=== PATIENT | male | born 1960 | race Hispanic/Latino ===

== ENCOUNTER 2016-11-28 10:28 | Emergency (ER) | payer MEDICAID ==
[2016-11-28] MEDS ORDERED: Albuterol-Ipratrop 3 mg / 0.5 (3 ml) UD ONE ×3 (10:41→11:17)
--- NOTE | 2016-11-28 10:53 | C.PDOC ---
History Of Present Illness 56 y/o male presents to ED with complaints of increased shortness of breath. Patient was seen by PMD 1 week ago and given Pulmonary consult referral but was not compliant due to misplacing medicare card as per patient. Patient reports he was a smoker up to 1 year ago and uses inhaler at home. Patient denies fever , chills, chest pain, n/v/d or any other complaints at this time. Time Seen by Provider: 11/28/16 10:37 Chief Complaint (Nursing): Shortness Of Breath History Per: Patient History/Exam Limitations: no limitations Onset/Duration Of Symptoms: Days Current Symptoms Are (Timing): Still Present Current Respiratory Medications: Albuterol Past Medical History Reviewed: Historical Data, Nursing Documentation, Vital Signs Vital Signs: Last Vital Signs Temp 97.3 F L 11/28/16 12:28 Pulse 96 H 11/28/16 12:28 Resp 18 11/28/16 12:28 BP 125/80 11/28/16 12:28 Pulse Ox 94 L 11/28/16 12:28 - Medical History PMH: Asthma, COPD Family History: States: Unknown Family Hx - Social History Hx Alcohol Use: No Hx Substance Use: No - Immunization History Hx Tetanus Toxoid Vaccination: No Hx Influenza Vaccination: Yes Hx Pneumococcal Vaccination: No Review Of Systems Except As Marked, All Systems Reviewed And Found Negative. Constitutional: Negative for: Fever, Chills Cardiovascular: Negative for: Chest Pain Respiratory: Positive for: Shortness of Breath. Negative for: Cough Gastrointestinal: Negative for: Nausea, Vomiting, Diarrhea Skin: Negative for: Rash Physical Exam - Physical Exam Appears: Non-toxic, No Acute Distress Skin: Normal Color, Warm, No Rash Head: Atraumatic, Normacephalic Oral Mucosa: Moist Chest: Symmetrical Cardiovascular: Rhythm Regular Respiratory: Normal Breath Sounds, No Rales, No Rhonchi, Wheezing (At base of lungs bilateral) Gastrointestinal/Abdominal: Soft, No Tenderness, No Guarding, No Rebound Extremity: Normal ROM, Capillary Refill (<2 seconds) Neurological/Psych: Oriented x3, Normal Speech ED Course And Treatment - Laboratory Results Result Diagrams: 11/28/16 11:16 11/28/16 10:47 Lab Interpretation: Normal ECG: Interpreted By Me ECG Rhythm: Sinus Tachycardia ECG Interpretation: No Acute Changes Rate From EC O2 Sat by Pulse Oximetry: 96 (RA) Pulse Ox Interpretation: Normal - Radiology CXR: Interpreted by Me CXR Interpretation: Yes: No Acute Disease - Other Rad chest X-Ray: Interpreted by Me, Viewed By Me, Read By Radiologist Interpretation: HISTORY: SOB. COMPARISON: Chest x-ray performed 06/11/16. TECHNIQUE: Chest PA and lateral. FINDINGS: LUNGS: Mild biapical pleural thickening. No focal consolidation. Scattered probable calcified granulomas. PLEURA: No significant pleural effusion identified. No definite pneumothorax . CARDIOVASCULAR: Heart size appears within normal limits. OSSEOUS STRUCTURES : Degenerative changes of the spine. VISUALIZED UPPER ABDOMEN: Unremarkable. OTHER FINDINGS: None. IMPRESSION: Mild biapical pleural thickening. Scattered probable tiny calcified granulomas. Progress Note: Treated with duonebs and prednisone. On re-ebaluation lungs clear, in no distress. ambulating with steady gait Reassessment Condition: Improved Medical Decision Making Medical Decision Making: Plan: * CXR * Breathing treatment * Steroids Disposition Counseled Patient/Family Regarding: Studies Performed, Diagnosis, Need For Followup - Disposition Referrals: Niecy Coreas MD [Medical Doctor] - Disposition: HOME/ ROUTINE Disposition Time: 13:00 Condition: GOOD Additional Instructions: Follow up with PMD for further evaluation Prescriptions: Methylprednisolone [Medrol Dose Pack (21 tabs)] 4 mg PO DAILY #21 mg Instructions: Dyspnea (ED) Forms: [facility] (Turkish) - POA Present On Arrival: None - Clinical Impression Clinical Impression: Dyspnea - Scribe Statement The provider has reviewed the documentation as recorded by the Daniloibblessing Velazquez All medical record entries made by the Daniloibblessing were at my direction and personally dictated by me. I have reviewed the chart and agree that the record accurately reflects my personal performance of the history, physical exam, medical decision making, and the department course for this patient. I have also personally directed, reviewed, and agree with the discharge instructions and disposition.
[2016-11-28] MEDS: Albuterol-Ipratrop 3 mg / 0.5 (3 ml) UD IH SCH ×3 (11:00→11:30)
[2016-11-28 11:09] LABS: BASO # 0.1 K/uL (0.0-0.2); EOS # 0.3 K/uL (0.0-0.7); EOS % 3.6 % (0.0-4.0); HEMATOCRIT 44.9 % (35.0-51.0); LYMPH # 0.9 K/uL (1.0-4.3); LYMPH % 10.8 % (20.0-40.0); MEAN CELL VOLUME 88.1 fL (80.0-94.0); MEAN PLATELET VOLUME 9.4 fL (7.2-11.7); MONO # 0.5 K/uL (0.0-0.8); MONO % 6.2 % (0.0-10.0); RED CELL DISTRIBUTION WIDTH 14.6 % (11.5-14.5); WHITE BLOOD COUNT 8.1 K/uL (4.8-10.8)
[2016-11-28 11:17] LABS: CHLORIDE 103 mmol/L (98-107); SODIUM 139 mmol/L (132-148)
[2016-11-28 11:18] LABS: POTASSIUM 3.8 mmol/L (3.6-5.2)
[2016-11-28 11:20] LABS: ALB/GLOB RATIO 1.2 (1.0-2.1); ALKALINE PHOSPHATASE 89 U/L (38-126); AST/SGOT 24 U/L (17-59); BILIRUBIN,TOTAL 0.7 mg/dL (0.2-1.3); BLOOD UREA NITROGEN 14 mg/dL (9-20); CARBON DIOXIDE 24 mmol/L (22-30); GFR AFRICAN-AMERICAN > 60; GLUCOSE,RANDOM 98 mg/dL (75-110); TOTAL PROTEIN 7.5 g/dL (6.3-8.3)
[2016-11-28 11:21] LABS: ALT/SGPT 40 U/L (21-72); CALCIUM 8.7 mg/dl (8.6-10.4)
[2016-11-28 11:25] VITALS: RESP 18
[2016-11-28 11:25] LABS: RBC URINE < 1 /hpf (0-3); URINE BILIRUBIN NEGATIVE (NEGATIVE); URINE BLOOD NEGATIVE (NEGATIVE); URINE COLOR Straw (YELLOW); URINE GLUCOSE (UA) NORMAL (Normal); URINE KETONE NEGATIVE (NEGATIVE); URINE LEUKOCYTE ESTERASE NEG Leu/uL (Negative); URINE PROTEIN NEGATIVE (NEGATIVE); URINE UROBILINOGEN NORMAL mg/dL (0.2-1.0); WBC URINE < 1 /hpf (0-5)
--- NOTE | 2016-11-28 12:03 | RAD ---
HISTORY: SOB COMPARISON: Chest x-ray performed 06/11/16 TECHNIQUE: Chest PA and lateral FINDINGS: LUNGS: Mild biapical pleural thickening. No focal consolidation. Scattered probable calcified granulomas. PLEURA: No significant pleural effusion identified. No definite pneumothorax . CARDIOVASCULAR: Heart size appears within normal limits. OSSEOUS STRUCTURES: Degenerative changes of the spine. VISUALIZED UPPER ABDOMEN: Unremarkable. OTHER FINDINGS: None. IMPRESSION: Mild biapical pleural thickening. Scattered probable tiny calcified granulomas.
[2016-11-28 12:29] VITALS: BP 125/80; PULSE 96; TEMP 97.3
[2016-11-28 17:05] VITALS: O2SAT 96
--- NOTE | 2016-12-01 18:13 | CARD ---
APPROVED REPORT EKG Measurement Heart [id number] <Conclusion> Sinus tachycardia Otherwise normal ECG
== END 2016-11-28 12:30 | disposition home or self-care (01) ==
LOC: C.ER 10:28
DX: R06.00 Dyspnea, unspecified (principal)

== ENCOUNTER 2016-12-09 04:53 | Inpatient (IN) | payer MEDICAID ==
[2016-12-09] MEDS ORDERED: Albuterol-Ipratrop 3 mg / 0.5 (3 ml) UD INH STA ×3 (05:30→05:31)
[2016-12-09 05:33] LABS: BASO # 0.1 K/uL (0.0-0.2); BASO % 0.4 % (0.0-2.0); EOS # 0.4 K/uL (0.0-0.7); EOS % 3.1 % (0.0-4.0); HEMATOCRIT 46.7 % (35.0-51.0); LYMPH # 1.5 K/uL (1.0-4.3); LYMPH % 11.3 % (20.0-40.0); MEAN CELL VOLUME 88.7 fL (80.0-94.0); MEAN CORPUSCULAR HEMOGLOBIN 29.5 pg (27.0-31.0); MEAN CORPUSCULAR HGB CONC 33.2 g/dL (33.0-37.0); MEAN PLATELET VOLUME 9.6 fL (7.2-11.7); MONO % 7.2 % (0.0-10.0); RED CELL DISTRIBUTION WIDTH 14.1 % (11.5-14.5); WHITE BLOOD COUNT 13.5 K/uL (4.8-10.8)
[2016-12-09] MEDS ORDERED: Magnesium Sulfate 1 gm in D5W 1 GM/100 ML BAG IVPB ONE ×2 (05:33→06:10)
[2016-12-09] MEDS: Magnesium Sulfate 1 gm in D5W 1 GM/100 ML BAG IVPB SCH ×2 (05:35→06:13)
[2016-12-09 05:36] LABS: ABG ALLEN TEST POS; ABG MECHANICAL RATE 12; ARTERIAL BLOOD GAS MODE BiPAP; ARTERIAL BLOOD HGB O2 SAT 96.8 % (95.0-98.0); CARBOXYHEMOGLOBIN 1.8 % (0.5-1.5); DRAW SITE RRADIAL; METHEMOGLOBIN 1.3 % (0.0-3.0)
[2016-12-09] MEDS ORDERED: Albuterol-Ipratrop 3 mg / 0.5 (3 ml) UD ONE (05:41)
[2016-12-09 05:44] LABS: CHLORIDE 100 mmol/L (98-107); POTASSIUM 3.8 mmol/L (3.6-5.2); SODIUM 142 mmol/L (132-148)
[2016-12-09 05:46] LABS: BILIRUBIN,TOTAL 0.7 mg/dL (0.2-1.3); GFR AFRICAN-AMERICAN > 60
[2016-12-09 05:47] LABS: ALB/GLOB RATIO 1.1 (1.0-2.1); ALKALINE PHOSPHATASE 105 U/L (38-126); ALT/SGPT 52 U/L (21-72); AST/SGOT 35 U/L (17-59); BLOOD UREA NITROGEN 21 mg/dL (9-20); CARBON DIOXIDE 23 mmol/L (22-30); GLUCOSE,RANDOM 128 mg/dL (75-110); TOTAL PROTEIN 8.3 g/dL (6.3-8.3)
--- NOTE | 2016-12-09 06:34 | C.PDOC ---
History Of Present Illness 56 year old male with a history of COPD was brought to the ED by ALS with complaints of sudden onset of shortness of breath upon waking up. Patient was given 20 of [place] in the field and placed on C-PAP. He also notes chronic dry cough and stopped smoking one year ago with a 45 year pack history. Patient denies pain while in the ED, fever, chest pain, or other complaints. Time Seen by Provider: 12/09/16 05:08 Chief Complaint (Nursing): Respiratory Distress History Per: Patient, Other (ALS) History/Exam Limitations: no limitations Onset/Duration Of Symptoms: Hrs, Sudden Onset Current Symptoms Are (Timing): Still Present Recent travel outside of the [place]: No Past Medical History Reviewed: Historical Data, Nursing Documentation, Vital Signs Vital Signs: Last Vital Signs Temp 97.5 F L 12/09/16 05:00 Pulse 107 H 12/09/16 05:14 Resp 24 12/09/16 05:38 BP 132/89 12/09/16 05:00 Pulse Ox 100 12/09/16 06:45 - Medical History PMH: Asthma, COPD Family History: States: Unknown Family Hx - Social History Hx Alcohol Use: No Hx Substance Use: No - Immunization History Hx Tetanus Toxoid Vaccination: No Hx Influenza Vaccination: Yes Hx Pneumococcal Vaccination: No Review Of Systems Constitutional: Negative for: Fever, Chills Cardiovascular: Negative for: Chest Pain, Palpitations Respiratory: Positive for: Shortness of Breath Physical Exam - Physical Exam Appears: Non-toxic, In Acute Distress (Mild to moderate distress ) Skin: Warm, Dry Head: Atraumatic Eye(s): bilateral: Normal Inspection, EOMI Oral Mucosa: Moist Neck: Supple Chest: Other (Chest is barrel shaped ) Cardiovascular: Other (Patient is tachycardic and regular ) Respiratory: No Accessory Muscle Use, No Rales, No Rhonchi, Wheezing (bilateral expiratory wheeze with fair entry ) Gastrointestinal/Abdominal: Soft, No Tenderness, No Distention, No Guarding, No Rebound ED Course And Treatment - Laboratory Results Result Diagrams: 12/09/16 05:31 12/09/16 05:31 ECG: Interpreted By Me, Viewed By Me ECG Rhythm: Sinus Tachycardia Interpretation Of ECG: Normal axis and normal interval. Rate From EC O2 Sat by Pulse Oximetry: 100 (room air ) Progress Note: CXR, EKG, and labs were ordered. Patient was given Duoneb, Solu- medrol, and BIPAP treatment. Upon re-evaluation, patient states he is feeling better. Patient has been taken off of BIPAP and is no acute distress. Critical Care Time - Critical Care Note Total Time (in mins): 40 Documented critical care: time excludes all time spent performing seperately billable procedures. Disposition - Disposition Disposition: HOSPITALIZED Disposition Time: 06:20 Condition: STABLE Forms: [employer] (Lithuanian) - Clinical Impression Clinical Impression: Chronic obstructive lung disease - Scribe Statement The provider has reviewed the documentation as recorded by the Scribe Shannan Abrams All medical record entries made by the Daniloibe were at my direction and personally dictated by me. I have reviewed the chart and agree that the record accurately reflects my personal performance of the history, physical exam, medical decision making, and the department course for this patient. I have also personally directed, reviewed, and agree with the discharge instructions and disposition.
--- NOTE | 2016-12-09 07:31 | RAD ---
PROCEDURE: CHEST RADIOGRAPH, 1 VIEW HISTORY: SOB COMPARISON: Chest radiographs 11/28/2016 FINDINGS: LUNGS: Clear. PLEURA: No pneumothorax or pleural fluid seen. CARDIOVASCULAR: Normal. OSSEOUS STRUCTURES: No significant abnormalities. VISUALIZED UPPER ABDOMEN: Normal. OTHER FINDINGS: None. IMPRESSION: No acute cardiopulmonary disease or significant interval change 11/28/2016.
[2016-12-09] MEDS: Albuterol-Ipratrop 3 mg / 0.5 (3 ml) UD INH SCH ×2 (13:42→20:35)
[2016-12-09] MEDS: Enoxaparin 40 mg Syringe SC SCH (13:51)
[2016-12-09] MEDS: Azithromycin 500mg/250ML NS 500 MG/250 ML BAG IVPB SCH (14:00)
[2016-12-09] MEDS: cefTRIAXone IV 1 gm in Dextros 50 ML IVPB SCH (14:00)
[2016-12-09] MEDS: MethylPREDNISolone 40 mg Vial IVP SCH ×2 (14:40→21:52)
--- NOTE | 2016-12-09 15:02 | CP.PCM.PN ---
Subjective - Date & Time of Evaluation Date of Evaluation: 12/09/16 Time of Evaluation: 15:02 Objective - Vital Signs/Intake and Output Vital Signs (last 24 hours): Temp Pulse Resp BP Pulse Ox 98.1 F 84 20 130/72 98 12/09/16 08:30 12/09/16 09:00 12/09/16 08:30 12/09/16 08:30 12/09/16 08:30 - Medications Medications: Current Medications Albuterol/Ipratropium (Duoneb 3 Mg/0.5 Mg (3 Ml) Ud) 3 ml INH RQ6 [facility] Last Admin: 12/09/16 13:42 Dose: 3 ml Enoxaparin Sodium (Lovenox) 40 mg SC DAILY [facility] Last Admin: 12/09/16 13:51 Dose: 40 mg Azithromycin (Zithromax 500mg In Ns Addvantage) 500 mg in 250 mls @ 167 mls/hr IVPB Q24H [facility] Last Admin: 12/09/16 14:00 Dose: 167 mls/hr Ceftriaxone Sodium (Rocephin Iv 1 Gm Duplex) 50 mls @ 100 mls/hr IVPB Q24H [facility] Last Admin: 12/09/16 14:00 Dose: 100 mls/hr Methylprednisolone (Solu-Medrol) 40 mg IVP Q8 [facility] Last Admin: 12/09/16 14:40 Dose: 40 mg Montelukast Sodium (Singulair) 10 mg PO HS [facility] Pantoprazole Sodium (Protonix Ec Tab) 40 mg PO DAILY [facility] Fluticasone/Salmeterol (Advair Diskus 250/50) 1 puff INH QD7 [facility]
--- NOTE | 2016-12-09 15:03 | CP.PCM.CON ---
Past Patient History - Past Social History Smoking Status: Current Some Days Smoker - PULMONARY Hx Asthma: Yes Hx Chronic Obstructive Pulmonary Disease (COPD): Yes - MUSCULOSKELETAL/RHEUMATOLOGICAL Hx Falls: No - PSYCHIATRIC Hx Substance Use: No - SURGICAL HISTORY Hx Surgeries: Yes Other/Comment: nose surgery - ANESTHESIA Hx Anesthesia: Yes Hx Anesthesia Reactions: No Meds Allergies/Adverse Reactions: Allergies Allergy/AdvReac Type Severity Reaction Status Date / Time HAYFEVER Allergy Uncoded 12/09/16 05:03 - Medications Medications: Current Medications Albuterol/Ipratropium (Duoneb 3 Mg/0.5 Mg (3 Ml) Ud) 3 ml INH RQ6 [facility] Last Admin: 12/09/16 13:42 Dose: 3 ml Enoxaparin Sodium (Lovenox) 40 mg SC DAILY [facility] Last Admin: 12/09/16 13:51 Dose: 40 mg Azithromycin (Zithromax 500mg In Ns Addvantage) 500 mg in 250 mls @ 167 mls/hr IVPB Q24H [facility] Last Admin: 12/09/16 14:00 Dose: 167 mls/hr Ceftriaxone Sodium (Rocephin Iv 1 Gm Duplex) 50 mls @ 100 mls/hr IVPB Q24H [facility] Last Admin: 12/09/16 14:00 Dose: 100 mls/hr Methylprednisolone (Solu-Medrol) 40 mg IVP Q8 [facility] Last Admin: 12/09/16 14:40 Dose: 40 mg Montelukast Sodium (Singulair) 10 mg PO HS [facility] Pantoprazole Sodium (Protonix Ec Tab) 40 mg PO DAILY [facility] Fluticasone/Salmeterol (Advair Diskus 250/50) 1 puff INH QD7 [facility] Results - Vital Signs Recent Vital Signs: Last Vital Signs Temp 98.1 F 12/09/16 08:30 Pulse 84 12/09/16 09:00 Resp 20 12/09/16 08:30 BP 130/72 12/09/16 08:30 Pulse Ox 98 12/09/16 08:30 - Labs Result Diagrams: 12/09/16 05:31 12/09/16 05:31
--- NOTE | 2016-12-09 15:35 | CP.PCM.HP ---
Past Patient History - Past Social History Smoking Status: Current Some Days Smoker - PULMONARY Hx Asthma: Yes Hx Chronic Obstructive Pulmonary Disease (COPD): Yes - MUSCULOSKELETAL/RHEUMATOLOGICAL Hx Falls: No - PSYCHIATRIC Hx Substance Use: No - SURGICAL HISTORY Hx Surgeries: Yes Other/Comment: nose surgery - ANESTHESIA Hx Anesthesia: Yes Hx Anesthesia Reactions: No Meds Allergies/Adverse Reactions: Allergies Allergy/AdvReac Type Severity Reaction Status Date / Time HAYFEVER Allergy Uncoded 12/09/16 05:03 Results - Vital Signs Recent Vital Signs: Last Vital Signs Temp 98.1 F 12/09/16 08:30 Pulse 84 12/09/16 09:00 Resp 20 12/09/16 08:30 BP 130/72 12/09/16 08:30 Pulse Ox 98 12/09/16 08:30 - Labs Result Diagrams: 12/09/16 05:31 12/09/16 05:31
--- NOTE | 2016-12-09 16:26 | CP.PCM.PN ---
Subjective - Date & Time of Evaluation Date of Evaluation: 12/09/16 Time of Evaluation: 02:20 - Subjective Subjective: clinically same Objective - Vital Signs/Intake and Output Vital Signs (last 24 hours): Temp Pulse Resp BP Pulse Ox 98 F 80 20 111/70 97 12/09/16 16:15 12/09/16 16:15 12/09/16 16:15 12/09/16 16:15 12/09/16 16:15 - Medications Medications: Current Medications Albuterol/Ipratropium (Duoneb 3 Mg/0.5 Mg (3 Ml) Ud) 3 ml INH RQ6 [facility] Last Admin: 12/09/16 13:42 Dose: 3 ml Enoxaparin Sodium (Lovenox) 40 mg SC DAILY [facility] Last Admin: 12/09/16 13:51 Dose: 40 mg Azithromycin (Zithromax 500mg In Ns Addvantage) 500 mg in 250 mls @ 167 mls/hr IVPB Q24H [facility] Last Admin: 12/09/16 14:00 Dose: 167 mls/hr Ceftriaxone Sodium (Rocephin Iv 1 Gm Duplex) 50 mls @ 100 mls/hr IVPB Q24H [facility] Last Admin: 12/09/16 14:00 Dose: 100 mls/hr Methylprednisolone (Solu-Medrol) 40 mg IVP Q8 [facility] Last Admin: 12/09/16 14:40 Dose: 40 mg Montelukast Sodium (Singulair) 10 mg PO HS [facility] Pantoprazole Sodium (Protonix Ec Tab) 40 mg PO DAILY [facility] Fluticasone/Salmeterol (Advair Diskus 250/50) 1 puff INH QD7 [facility] - Constitutional Appears: Well - Head Exam Head Exam: ATRAUMATIC, NORMAL INSPECTION, NORMOCEPHALIC - Eye Exam Eye Exam: EOMI, Normal appearance, PERRL - ENT Exam ENT Exam: Mucous Membranes Moist, Normal Exam - Neck Exam Neck Exam: Full ROM, Normal Inspection. absent: Lymphadenopathy - Respiratory Exam Respiratory Exam: Decreased Breath Sounds - Cardiovascular Exam Cardiovascular Exam: REGULAR RHYTHM, +S1, +S2. absent: Murmur - GI/Abdominal Exam GI & Abdominal Exam: Diminished Bowel Sounds - Rectal Exam Rectal Exam: Deferred Assessment and Plan (1) Chronic obstructive lung disease Status: Acute (2) Asthma exacerbation Status: Acute (3) Chest wall pain Status: Acute (4) Dyspnea Status: Acute (5) Laryngitis Status: Acute
--- NOTE | 2016-12-09 20:15 | CP.PCM.CON ---
History of Present Illness - History of Present Illness History of Present Illness: 56 Male Ex smoker admitted with dyspnea C/O Atypical chest pain Review of Systems - Constitutional Constitutional: absent: Chills - EENT Eyes: absent: As Per HPI, Blind Spots, Blurred Vision, Change in Vision, Decreased Night Vision, Diplopia, Discharge, Dry Eye, Exophthalmos, Floaters, Irritation, Itchy Eyes, Loss of Peripheral Vision, Pain, Photophobia, Requires Corrective Lenses, Sees Flashes, Spots in Vision, Tunnel Vision, Other Visual Disturbances, Loss of Vision, Other Nose/Mouth/Throat: absent: As Per HPI, Epistaxis, Nasal Congestion, Nasal Discharge, Nasal Obstruction, Nasal Trauma, Nose Pain, Post Nasal Drip, Sinus Pain, Sinus Pressure, Bleeding Gums, Change in Voice, Dental Pain, Dry Mouth, Dysphagia, Halitosis, Hoarsness, Lip Swelling, Mouth Lesions, Mouth Pain, Odynophagia, Sore Throat, Throat Swelling, Tongue Swelling, Facial Pain, Neck Pain, Neck Mass, Other - Cardiovascular Cardiovascular: Chest Pain, Dyspnea on Exertion - Respiratory Respiratory: Dyspnea on Exertion. absent: Cough - Gastrointestinal Gastrointestinal: absent: Abdominal Pain - Musculoskeletal Musculoskeletal: Myalgias - Neurological Neurological: absent: As Per HPI, Abnormal Gait, Abnormal Hearing, Abnormal Movements, Abnormal Speech, Behavioral Changes, Burning Sensations, Confusion, Convulsions, Disequilibrium, Dizziness, Numbness, Focal Weakness, Frequent Falls , Headaches, Lack of Coordination, Loss of Vision, Memory Loss, Paresthesias, Radicular Pain, Restless Legs, Sensory Deficit, Syncope, Tingling, Tremor, Vertigo, Weakness, Other Visual Disturbances, Other - Psychiatric Psychiatric: absent: As Per HPI, Abnormal Sleep Pattern, Anhedonia, Anxiety, Auditory Hallucinations, Behavioral Changes, Change in Appetite, Change in Libido, Confusion, Depression, Difficulty Concentrating, Hallucinations, Homicidal Ideation, Hopelessness, Irritability, Memory Loss, Mood Swings, Panic Attacks, Paranoia, Suicidal Ideation, Visual Hallucinations, Tactile Hallucinations, Other Past Patient History - Past Social History Smoking Status: Current Some Days Smoker - PULMONARY Hx Asthma: Yes Hx Chronic Obstructive Pulmonary Disease (COPD): Yes - MUSCULOSKELETAL/RHEUMATOLOGICAL Hx Falls: No - PSYCHIATRIC Hx Substance Use: No - SURGICAL HISTORY Hx Surgeries: Yes Other/Comment: nose surgery - ANESTHESIA Hx Anesthesia: Yes Hx Anesthesia Reactions: No Meds Allergies/Adverse Reactions: Allergies Allergy/AdvReac Type Severity Reaction Status Date / Time HAYFEVER Allergy Uncoded 12/09/16 05:03 - Medications Medications: Current Medications Albuterol/Ipratropium (Duoneb 3 Mg/0.5 Mg (3 Ml) Ud) 3 ml INH RQ6 [facility] Last Admin: 12/09/16 13:42 Dose: 3 ml Enoxaparin Sodium (Lovenox) 40 mg SC DAILY [facility] Last Admin: 12/09/16 13:51 Dose: 40 mg Azithromycin (Zithromax 500mg In Ns Addvantage) 500 mg in 250 mls @ 167 mls/hr IVPB Q24H [facility] Last Admin: 12/09/16 14:00 Dose: 167 mls/hr Ceftriaxone Sodium (Rocephin Iv 1 Gm Duplex) 50 mls @ 100 mls/hr IVPB Q24H [facility] Last Admin: 12/09/16 14:00 Dose: 100 mls/hr Methylprednisolone (Solu-Medrol) 40 mg IVP Q8 [facility] Last Admin: 12/09/16 14:40 Dose: 40 mg Montelukast Sodium (Singulair) 10 mg PO HS [facility] Pantoprazole Sodium (Protonix Ec Tab) 40 mg PO DAILY [facility] Fluticasone/Salmeterol (Advair Diskus 250/50) 1 puff INH QD7 [facility] Physical Exam - Head Exam Head Exam: ATRAUMATIC, NORMAL INSPECTION - Eye Exam Eye Exam: EOMI, PERRL Pupil Exam: NORMAL ACCOMODATION - ENT Exam ENT Exam: Mucous Membranes Moist - Neck Exam Neck exam: Positive for: Normal Inspection - Respiratory Exam Additional comments: Decreased basal breath sounds - Cardiovascular Exam Cardiovascular Exam: REGULAR RHYTHM, +S1, +S2 - GI/Abdominal Exam GI & Abdominal Exam: Normal Bowel Sounds, Soft - Neurological Exam Neurological exam: Alert, CN II-XII Intact, Reflexes Normal - Psychiatric Exam Psychiatric exam: Normal Mood - Skin Skin Exam: Warm Results - Vital Signs Recent Vital Signs: Last Vital Signs Temp 98 F 12/09/16 16:15 Pulse 80 12/09/16 16:15 Resp 20 12/09/16 16:15 BP 111/70 12/09/16 16:15 Pulse Ox 97 12/09/16 16:15 - Labs Result Diagrams: 12/09/16 05:31 12/09/16 05:31 Assessment & Plan - Assessment and Plan (Free Text) Assessment: 1. Dyspnea Likely respiratory. Check ProBNP 2. atypical chest pain. Trops normal. Check ECHO
[2016-12-10] MEDS: Albuterol-Ipratrop 3 mg / 0.5 (3 ml) UD INH SCH ×4 (01:45→20:26)
[2016-12-10] MEDS: MethylPREDNISolone 40 mg Vial IVP SCH ×3 (05:08→21:26)
[2016-12-10] MEDS: Enoxaparin 40 mg Syringe SC SCH (09:37)
[2016-12-10] MEDS: Pantoprazole 40 mg EC Tab PO SCH (09:37)
[2016-12-10] MEDS: Fluticasone-Salmeterol 250-50mcg Diskus INH SCH ×2 (09:55→20:26)
[2016-12-10] MEDS: Azithromycin 500mg/250ML NS 500 MG/250 ML BAG IVPB SCH (12:14)
--- NOTE | 2016-12-10 14:22 | CP.PCM.PN ---
Subjective - Date & Time of Evaluation Date of Evaluation: 12/10/16 Time of Evaluation: 14:22 Objective - Vital Signs/Intake and Output Vital Signs (last 24 hours): Temp Pulse Resp BP Pulse Ox 97.4 F L 69 18 118/71 95 12/10/16 07:10 12/10/16 07:10 12/10/16 07:10 12/10/16 07:10 12/10/16 07:10 Intake and Output: 12/10/16 12/10/16 06:59 18:59 Intake Total 500 Balance 500 - Medications Medications: Current Medications Albuterol/Ipratropium (Duoneb 3 Mg/0.5 Mg (3 Ml) Ud) 3 ml INH RQ6 [facility] Last Admin: 12/10/16 13:17 Dose: 3 ml Enoxaparin Sodium (Lovenox) 40 mg SC DAILY [facility] Last Admin: 12/10/16 09:37 Dose: 40 mg Azithromycin (Zithromax 500mg In Ns Addvantage) 500 mg in 250 mls @ 167 mls/hr IVPB Q24H [facility] Last Admin: 12/10/16 12:14 Dose: 167 mls/hr Ceftriaxone Sodium (Rocephin Iv 1 Gm Duplex) 50 mls @ 100 mls/hr IVPB Q24H [facility] Last Admin: 12/09/16 14:00 Dose: 100 mls/hr Methylprednisolone (Solu-Medrol) 40 mg IVP Q8 [facility] Last Admin: 12/10/16 05:08 Dose: 40 mg Montelukast Sodium (Singulair) 10 mg PO HS [facility] Last Admin: 12/09/16 21:55 Dose: 10 mg Nicotine (Nicoderm Cq) 1 patch TD DAILY [facility] Last Admin: 12/10/16 11:00 Dose: 1 patch Pantoprazole Sodium (Protonix Ec Tab) 40 mg PO DAILY [facility] Last Admin: 12/10/16 09:37 Dose: 40 mg Fluticasone/Salmeterol (Advair Diskus 250/50) 1 puff INH QD7 [facility] Last Admin: 12/10/16 09:55 Dose: 1 puff
--- NOTE | 2016-12-10 14:43 | CP.PCM.PN ---
Subjective - Date & Time of Evaluation Date of Evaluation: 12/10/16 Time of Evaluation: 14:40 - Subjective Subjective: Service for Dr. Ragland Patient seen/examined at bedside. No acute distress. No events overnight. Patient breathing better, will repeat abg. No fevers, chills, vomiting, diarrhea. Cultures negative. Objective - Vital Signs/Intake and Output Vital Signs (last 24 hours): Temp Pulse Resp BP Pulse Ox 97.4 F L 69 18 118/71 95 12/10/16 07:10 12/10/16 07:10 12/10/16 07:10 12/10/16 07:10 12/10/16 07:10 Intake and Output: 12/10/16 12/10/16 06:59 18:59 Intake Total 500 Balance 500 - Medications Medications: Current Medications Albuterol/Ipratropium (Duoneb 3 Mg/0.5 Mg (3 Ml) Ud) 3 ml INH RQ6 [facility] Last Admin: 12/10/16 13:17 Dose: 3 ml Enoxaparin Sodium (Lovenox) 40 mg SC DAILY [facility] Last Admin: 12/10/16 09:37 Dose: 40 mg Azithromycin (Zithromax 500mg In Ns Addvantage) 500 mg in 250 mls @ 167 mls/hr IVPB Q24H [facility] Last Admin: 12/10/16 12:14 Dose: 167 mls/hr Ceftriaxone Sodium (Rocephin Iv 1 Gm Duplex) 50 mls @ 100 mls/hr IVPB Q24H [facility] Last Admin: 12/09/16 14:00 Dose: 100 mls/hr Methylprednisolone (Solu-Medrol) 40 mg IVP Q8 [facility] Last Admin: 12/10/16 05:08 Dose: 40 mg Montelukast Sodium (Singulair) 10 mg PO HS [facility] Last Admin: 12/09/16 21:55 Dose: 10 mg Nicotine (Nicoderm Cq) 1 patch TD DAILY [facility] Last Admin: 12/10/16 11:00 Dose: 1 patch Pantoprazole Sodium (Protonix Ec Tab) 40 mg PO DAILY [facility] Last Admin: 12/10/16 09:37 Dose: 40 mg Fluticasone/Salmeterol (Advair Diskus 250/50) 1 puff INH QD7 [facility] Last Admin: 12/10/16 09:55 Dose: 1 puff - Constitutional Appears: Non-toxic, No Acute Distress - Head Exam Head Exam: ATRAUMATIC, NORMAL INSPECTION, NORMOCEPHALIC - Eye Exam Eye Exam: EOMI - ENT Exam ENT Exam: Mucous Membranes Moist - Neck Exam Neck Exam: Full ROM, Normal Inspection - Respiratory Exam Respiratory Exam: Wheezes. absent: Clear to Ausculation Bilateral, Respiratory Distress - Cardiovascular Exam Cardiovascular Exam: REGULAR RHYTHM, +S1, +S2 - GI/Abdominal Exam GI & Abdominal Exam: Soft, Normal Bowel Sounds. absent: Tenderness - Extremities Exam Extremities Exam: Full ROM, Normal Inspection - Neurological Exam Neurological Exam: Alert, Awake, Oriented x3 - Psychiatric Exam Psychiatric exam: Normal Affect, Normal Mood - Skin Skin Exam: Dry, Intact, Normal Color, Warm Assessment and Plan - Assessment and Plan (Free Text) Assessment: This is a 56 yo male with past medical hx of COPD presenting with shortness of breath/COPD exacerbation 1. COPD exacerbation -duonebs q 6 hrs -azithromycin 500 mg daily -ceftriaxone 15 mg daily -solumedrol 40 iv q 8 -singulair 10 daily -will repeat abg 2. GI/DVT ppx -lovenox 40 daily -protonix daily dw Dr. Ragland
[2016-12-10 14:45] LABS: BASO % 0.1 % (0.0-2.0); HEMATOCRIT 41.6 % (35.0-51.0); LYMPH # 0.4 K/uL (1.0-4.3); LYMPH % 2.3 % (20.0-40.0); MEAN CELL VOLUME 87.9 fL (80.0-94.0); MEAN CORPUSCULAR HEMOGLOBIN 29.2 pg (27.0-31.0); MEAN CORPUSCULAR HGB CONC 33.3 g/dL (33.0-37.0); MEAN PLATELET VOLUME 9.6 fL (7.2-11.7); MONO % 5.3 % (0.0-10.0); PLATELET COUNT 202 K/uL (130-400); RED CELL DISTRIBUTION WIDTH 14.4 % (11.5-14.5); WHITE BLOOD COUNT 19.6 K/uL (4.8-10.8)
[2016-12-10 14:56] LABS: CHLORIDE 101 mmol/L (98-107); POTASSIUM 4.6 mmol/L (3.6-5.2); SODIUM 140 mmol/L (132-148)
[2016-12-10 14:58] LABS: ALB/GLOB RATIO 1.2 (1.0-2.1); ALKALINE PHOSPHATASE 84 U/L (38-126); AST/SGOT 33 U/L (17-59); BILIRUBIN,TOTAL 0.4 mg/dL (0.2-1.3); CARBON DIOXIDE 24 mmol/L (22-30); GFR AFRICAN-AMERICAN > 60; TOTAL PROTEIN 7.5 g/dL (6.3-8.3)
[2016-12-10 14:59] LABS: ALT/SGPT 47 U/L (21-72); BLOOD UREA NITROGEN 24 mg/dL (9-20); CALCIUM 9.2 mg/dl (8.6-10.4); GLUCOSE,RANDOM 138 mg/dL (75-110); MAGNESIUM 2.3 mg/dL (1.6-2.3)
[2016-12-10 15:26] LABS: NEUTROPHIL 93 % (50-75); TOTAL CELLS COUNTED 100
[2016-12-10 16:00] VITALS: RESP 20
[2016-12-10 16:24] LABS: ABG ALLEN TEST POS; ARTERIAL BLOOD HGB O2 SAT 93.8 % (95.0-98.0); DRAW SITE RRA; HHB 2.3 % (0.0-5.0); METHEMOGLOBIN 1.9 % (0.0-3.0)
[2016-12-10] MEDS: cefTRIAXone IV 1 gm in Dextros 50 ML IVPB SCH (17:35)
--- NOTE | 2016-12-10 19:02 | CP.PCM.PN ---
Subjective - Date & Time of Evaluation Date of Evaluation: 12/10/16 Time of Evaluation: 14:20 - Subjective Subjective: clinically same Objective - Vital Signs/Intake and Output Vital Signs (last 24 hours): Temp Pulse Resp BP Pulse Ox 97.4 F L 82 20 115/67 96 12/10/16 15:30 12/10/16 15:30 12/10/16 15:30 12/10/16 15:30 12/10/16 15:30 Intake and Output: 12/10/16 12/11/16 18:59 06:59 Intake Total 700 Balance 700 - Medications Medications: Current Medications Albuterol/Ipratropium (Duoneb 3 Mg/0.5 Mg (3 Ml) Ud) 3 ml INH RQ6 [facility] Last Admin: 12/10/16 13:17 Dose: 3 ml Enoxaparin Sodium (Lovenox) 40 mg SC DAILY [facility] Last Admin: 12/10/16 09:37 Dose: 40 mg Azithromycin (Zithromax 500mg In Ns Addvantage) 500 mg in 250 mls @ 167 mls/hr IVPB Q24H [facility] Last Admin: 12/10/16 12:14 Dose: 167 mls/hr Ceftriaxone Sodium (Rocephin Iv 1 Gm Duplex) 50 mls @ 100 mls/hr IVPB Q24H [facility] Last Admin: 12/10/16 17:35 Dose: 100 mls/hr Methylprednisolone (Solu-Medrol) 40 mg IVP Q8 [facility] Last Admin: 12/10/16 14:53 Dose: 40 mg Montelukast Sodium (Singulair) 10 mg PO HS [facility] Last Admin: 12/09/16 21:55 Dose: 10 mg Nicotine (Nicoderm Cq) 1 patch TD DAILY [facility] Last Admin: 12/10/16 11:00 Dose: 1 patch Pantoprazole Sodium (Protonix Ec Tab) 40 mg PO DAILY [facility] Last Admin: 12/10/16 09:37 Dose: 40 mg Fluticasone/Salmeterol (Advair Diskus 250/50) 1 puff INH QD7 [facility] Last Admin: 12/10/16 09:55 Dose: 1 puff - Labs Labs: 12/10/16 14:40 12/10/16 14:40 - Constitutional Appears: Well - Head Exam Head Exam: ATRAUMATIC, NORMAL INSPECTION, NORMOCEPHALIC - Eye Exam Eye Exam: EOMI, Normal appearance, PERRL Pupil Exam: NORMAL ACCOMODATION, PERRL - ENT Exam ENT Exam: Mucous Membranes Moist, Normal Exam - Neck Exam Neck Exam: Full ROM, Normal Inspection. absent: Lymphadenopathy - Respiratory Exam Respiratory Exam: Decreased Breath Sounds - Cardiovascular Exam Cardiovascular Exam: REGULAR RHYTHM, +S1, +S2 - GI/Abdominal Exam GI & Abdominal Exam: Soft, Diminished Bowel Sounds - Rectal Exam Rectal Exam: Deferred Assessment and Plan (1) Chronic obstructive lung disease Status: Acute (2) Asthma exacerbation Status: Acute (3) Chest wall pain Status: Acute (4) Dyspnea Status: Acute (5) Laryngitis Status: Acute
--- NOTE | 2016-12-10 22:55 | CP.PCM.PN ---
Subjective - Date & Time of Evaluation Date of Evaluation: 12/10/16 Time of Evaluation: 10:50 - Subjective Subjective: Patient seen and evaluated No chest pain Breathing improved Review of Systems - Constitutional Constitutional: absent: Chills - EENT Eyes: absent: As Per HPI, Blind Spots, Blurred Vision, Change in Vision, Decreased Night Vision, Diplopia, Discharge, Dry Eye, Exophthalmos, Floaters, Irritation, Itchy Eyes, Loss of Peripheral Vision, Pain, Photophobia, Requires Corrective Lenses, Sees Flashes, Spots in Vision, Tunnel Vision, Other Visual Disturbances, Loss of Vision, Other Nose/Mouth/Throat: absent: As Per HPI, Epistaxis, Nasal Congestion, Nasal Discharge, Nasal Obstruction, Nasal Trauma, Nose Pain, Post Nasal Drip, Sinus Pain, Sinus Pressure, Bleeding Gums, Change in Voice, Dental Pain, Dry Mouth, Dysphagia, Halitosis, Hoarsness, Lip Swelling, Mouth Lesions, Mouth Pain, Odynophagia, Sore Throat, Throat Swelling, Tongue Swelling, Facial Pain, Neck Pain, Neck Mass, Other - Cardiovascular Cardiovascular: Chest Pain, Dyspnea on Exertion - Respiratory Respiratory: Dyspnea on Exertion. absent: Cough - Gastrointestinal Gastrointestinal: absent: Abdominal Pain - Musculoskeletal Musculoskeletal: Myalgias - Neurological Neurological: absent: As Per HPI, Abnormal Gait, Abnormal Hearing, Abnormal Movements, Abnormal Speech, Behavioral Changes, Burning Sensations, Confusion, Convulsions, Disequilibrium, Dizziness, Numbness, Focal Weakness, Frequent Falls , Headaches, Lack of Coordination, Loss of Vision, Memory Loss, Paresthesias, Radicular Pain, Restless Legs, Sensory Deficit, Syncope, Tingling, Tremor, Vertigo, Weakness, Other Visual Disturbances, Other - Psychiatric Psychiatric: absent: As Per HPI, Abnormal Sleep Pattern, Anhedonia, Anxiety, Auditory Hallucinations, Behavioral Changes, Change in Appetite, Change in Libido, Confusion, Depression, Difficulty Concentrating, Hallucinations, Homicidal Ideation, Hopelessness, Irritability, Memory Loss, Mood Swings, Panic Attacks, Paranoia, Suicidal Ideation, Visual Hallucinations, Tactile Hallucinations, Other Past Patient History - Past Social History Smoking Status: Current Some Days Smoker - PULMONARY Hx Asthma: Yes Hx Chronic Obstructive Pulmonary Disease (COPD): Yes - MUSCULOSKELETAL/RHEUMATOLOGICAL Hx Falls: No - PSYCHIATRIC Hx Substance Use: No - SURGICAL HISTORY Hx Surgeries: Yes Other/Comment: nose surgery - ANESTHESIA Hx Anesthesia: Yes Hx Anesthesia Reactions: No Physical Exam - Head Exam Head Exam: ATRAUMATIC, NORMAL INSPECTION - Eye Exam Eye Exam: EOMI, PERRL Pupil Exam: NORMAL ACCOMODATION - ENT Exam ENT Exam: Mucous Membranes Moist - Neck Exam Neck exam: Positive for: Normal Inspection - Respiratory Exam Additional comments: Decreased basal breath sounds - Cardiovascular Exam Cardiovascular Exam: REGULAR RHYTHM, +S1, +S2 - GI/Abdominal Exam GI & Abdominal Exam: Normal Bowel Sounds, Soft - Neurological Exam Neurological exam: Alert, CN II-XII Intact, Reflexes Normal - Psychiatric Exam Psychiatric exam: Normal Mood - Skin Skin Exam: Warm Objective - Vital Signs/Intake and Output Vital Signs (last 24 hours): Temp Pulse Resp BP Pulse Ox 97.4 F L 82 20 115/67 96 12/10/16 15:30 12/10/16 15:30 12/10/16 15:30 12/10/16 15:30 12/10/16 15:30 Intake and Output: 12/10/16 12/11/16 18:59 06:59 Intake Total 700 700 Balance 700 700 - Medications Medications: Current Medications Albuterol/Ipratropium (Duoneb 3 Mg/0.5 Mg (3 Ml) Ud) 3 ml INH RQ6 [facility] Last Admin: 12/10/16 20:26 Dose: 3 ml Enoxaparin Sodium (Lovenox) 40 mg SC DAILY [facility] Last Admin: 12/10/16 09:37 Dose: 40 mg Azithromycin (Zithromax 500mg In Ns Addvantage) 500 mg in 250 mls @ 167 mls/hr IVPB Q24H [facility] Last Admin: 12/10/16 12:14 Dose: 167 mls/hr Ceftriaxone Sodium (Rocephin Iv 1 Gm Duplex) 50 mls @ 100 mls/hr IVPB Q24H [facility] Last Admin: 12/10/16 17:35 Dose: 100 mls/hr Methylprednisolone (Solu-Medrol) 40 mg IVP Q8 [facility] Last Admin: 12/10/16 21:26 Dose: 40 mg Montelukast Sodium (Singulair) 10 mg PO HS [facility] Last Admin: 12/10/16 21:26 Dose: 10 mg Nicotine (Nicoderm Cq) 1 patch TD DAILY [facility] Last Admin: 12/10/16 11:00 Dose: 1 patch Pantoprazole Sodium (Protonix Ec Tab) 40 mg PO DAILY [facility] Last Admin: 12/10/16 09:37 Dose: 40 mg Fluticasone/Salmeterol (Advair Diskus 250/50) 1 puff INH QD7 [facility] Last Admin: 12/10/16 20:26 Dose: 1 puff - Labs Labs: 12/10/16 14:40 12/10/16 14:40 Assessment and Plan - Assessment and Plan (Free Text) Assessment: 1. Dyspnea Likely respiratory 2. atypical chest pain. Trops normal Normal LV function No further cardiac work up for now Stress test as out patient
[2016-12-11] MEDS: Albuterol-Ipratrop 3 mg / 0.5 (3 ml) UD INH SCH ×4 (01:27→19:54)
[2016-12-11] MEDS: MethylPREDNISolone 40 mg Vial IVP SCH ×3 (06:08→21:15)
--- NOTE | 2016-12-11 07:32 | CP.PCM.PN ---
Subjective - Date & Time of Evaluation Date of Evaluation: 12/11/16 Time of Evaluation: 11:12 - Subjective Subjective: PGY 2 Medicine Note: Dr. Ragland's service Pt seen and examined in no acute distress. Patient states that he has a history of COPD exacerbations for which he normally recovers from. Patient states that he has a dry non productive cough that comes and goes. He states that he sometimes just solely feels the urge to cough; but does not always. Patient denies fevers, chills, chest pain, palpitations, nausea, vomiting or diarrhea at this time. Objective - Vital Signs/Intake and Output Vital Signs (last 24 hours): Temp Pulse Resp BP Pulse Ox 97.4 F L 61 20 135/72 96 12/10/16 23:50 12/10/16 23:50 12/10/16 23:50 12/10/16 23:50 12/10/16 23:50 Intake and Output: 12/11/16 12/11/16 06:59 18:59 Intake Total 940 Balance 940 - Medications Medications: Current Medications Albuterol/Ipratropium (Duoneb 3 Mg/0.5 Mg (3 Ml) Ud) 3 ml INH RQ6 [facility] Last Admin: 12/11/16 07:20 Dose: 3 ml Enoxaparin Sodium (Lovenox) 40 mg SC DAILY [facility] Last Admin: 12/10/16 09:37 Dose: 40 mg Azithromycin (Zithromax 500mg In Ns Addvantage) 500 mg in 250 mls @ 167 mls/hr IVPB Q24H [facility] Last Admin: 12/10/16 12:14 Dose: 167 mls/hr Ceftriaxone Sodium (Rocephin Iv 1 Gm Duplex) 50 mls @ 100 mls/hr IVPB Q24H [facility] Last Admin: 12/10/16 17:35 Dose: 100 mls/hr Methylprednisolone (Solu-Medrol) 40 mg IVP Q8 [facility] Last Admin: 12/11/16 06:08 Dose: 40 mg Montelukast Sodium (Singulair) 10 mg PO HS [facility] Last Admin: 12/10/16 21:26 Dose: 10 mg Nicotine (Nicoderm Cq) 1 patch TD DAILY [facility] Last Admin: 12/10/16 11:00 Dose: 1 patch Pantoprazole Sodium (Protonix Ec Tab) 40 mg PO DAILY [facility] Last Admin: 12/10/16 09:37 Dose: 40 mg Fluticasone/Salmeterol (Advair Diskus 250/50) 1 puff INH QD7 [facility] Last Admin: 12/10/16 20:26 Dose: 1 puff - Labs Labs: 12/10/16 14:40 12/10/16 14:40 - Constitutional Appears: Non-toxic, No Acute Distress - Head Exam Head Exam: ATRAUMATIC, NORMAL INSPECTION, NORMOCEPHALIC - Eye Exam Eye Exam: EOMI, Normal appearance, PERRL Pupil Exam: NORMAL ACCOMODATION - ENT Exam ENT Exam: Mucous Membranes Moist - Neck Exam Neck Exam: Full ROM - Respiratory Exam Respiratory Exam: Decreased Breath Sounds (lower lung harden), Wheezes - Cardiovascular Exam Cardiovascular Exam: +S1, +S2 - GI/Abdominal Exam GI & Abdominal Exam: Soft, Normal Bowel Sounds - Extremities Exam Extremities Exam: Full ROM, Normal Capillary Refill - Back Exam Back Exam: Full ROM - Neurological Exam Neurological Exam: Alert, Awake, CN II-XII Intact, Oriented x3 - Psychiatric Exam Psychiatric exam: Normal Affect, Normal Mood - Skin Skin Exam: Dry, Normal Color, Warm Assessment and Plan (1) COPD exacerbation Assessment & Plan: -Duonebs Q6 hrs, Advair BID -Azithromycin 500 mg daily/Ceftriaxone 1 mg daily. Started on 12/09/16 -Started on Florastor BID 12/11 -Solumedrol 40 IV q 8 -Singulair 10 daily -CXR- no signs of current active disease -Blood cultures no growth to date -Will have to speak with case management on 12/12 regarding qualifying for Home oxygen. F/U Status: Acute (2) Tobacco use disorder Assessment & Plan: Patient is on a nicotine patch daily Counseling on smoking cessation Status: Acute (3) Prophylactic measure Assessment & Plan: SCDs Lovenox 40 mg SC daily Protonix 40 mg SC daily Status: Acute
[2016-12-11] MEDS: Pantoprazole 40 mg EC Tab PO SCH (09:11)
[2016-12-11] MEDS: Enoxaparin 40 mg Syringe SC SCH (09:11)
[2016-12-11] MEDS: Azithromycin 500mg/250ML NS 500 MG/250 ML BAG IVPB SCH (12:27)
[2016-12-11] MEDS: cefTRIAXone IV 1 gm in Dextros 50 ML IVPB SCH (14:37)
--- NOTE | 2016-12-11 15:35 | CP.PCM.PN ---
Subjective - Date & Time of Evaluation Date of Evaluation: 12/11/16 Time of Evaluation: 15:35 Objective - Vital Signs/Intake and Output Vital Signs (last 24 hours): Temp Pulse Resp BP Pulse Ox 98.1 F 75 20 137/71 99 12/11/16 07:52 12/11/16 07:52 12/11/16 07:52 12/11/16 07:52 12/11/16 07:52 - Medications Medications: Current Medications Albuterol/Ipratropium (Duoneb 3 Mg/0.5 Mg (3 Ml) Ud) 3 ml INH RQ6 [facility] Last Admin: 12/11/16 13:15 Dose: 3 ml Enoxaparin Sodium (Lovenox) 40 mg SC DAILY [facility] Last Admin: 12/11/16 09:11 Dose: 40 mg Azithromycin (Zithromax 500mg In Ns Addvantage) 500 mg in 250 mls @ 167 mls/hr IVPB Q24H [facility] Last Admin: 12/11/16 12:27 Dose: 167 mls/hr Ceftriaxone Sodium (Rocephin Iv 1 Gm Duplex) 50 mls @ 100 mls/hr IVPB Q24H [facility] Last Admin: 12/11/16 14:37 Dose: 100 mls/hr Methylprednisolone (Solu-Medrol) 40 mg IVP Q8 [facility] Last Admin: 12/11/16 14:36 Dose: 40 mg Montelukast Sodium (Singulair) 10 mg PO HS [facility] Last Admin: 12/10/16 21:26 Dose: 10 mg Nicotine (Nicoderm Cq) 1 patch TD DAILY [facility] Last Admin: 12/11/16 09:11 Dose: 1 patch Pantoprazole Sodium (Protonix Ec Tab) 40 mg PO DAILY [facility] Last Admin: 12/11/16 09:11 Dose: 40 mg Saccharomyces Boulardii (Florastor) 250 mg PO BID [facility] Fluticasone/Salmeterol (Advair Diskus 250/50) 1 puff INH DAILY [facility]
--- NOTE | 2016-12-11 16:12 | CP.PCM.PN ---
Subjective - Date & Time of Evaluation Date of Evaluation: 12/11/16 Time of Evaluation: 13:20 - Subjective Subjective: clinically same Objective - Vital Signs/Intake and Output Vital Signs (last 24 hours): Temp Pulse Resp BP Pulse Ox 97.5 F L 69 20 128/77 96 12/11/16 15:37 12/11/16 15:37 12/11/16 15:37 12/11/16 15:37 12/11/16 15:37 Intake and Output: 12/11/16 12/11/16 06:59 18:59 Output Total 200 Balance -200 - Medications Medications: Current Medications Albuterol/Ipratropium (Duoneb 3 Mg/0.5 Mg (3 Ml) Ud) 3 ml INH RQ6 [facility] Last Admin: 12/11/16 13:15 Dose: 3 ml Enoxaparin Sodium (Lovenox) 40 mg SC DAILY [facility] Last Admin: 12/11/16 09:11 Dose: 40 mg Azithromycin (Zithromax 500mg In Ns Addvantage) 500 mg in 250 mls @ 167 mls/hr IVPB Q24H [facility] Last Admin: 12/11/16 12:27 Dose: 167 mls/hr Ceftriaxone Sodium (Rocephin Iv 1 Gm Duplex) 50 mls @ 100 mls/hr IVPB Q24H [facility] Last Admin: 12/11/16 14:37 Dose: 100 mls/hr Methylprednisolone (Solu-Medrol) 40 mg IVP Q8 [facility] Last Admin: 12/11/16 14:36 Dose: 40 mg Montelukast Sodium (Singulair) 10 mg PO HS [facility] Last Admin: 12/10/16 21:26 Dose: 10 mg Nicotine (Nicoderm Cq) 1 patch TD DAILY [facility] Last Admin: 12/11/16 09:11 Dose: 1 patch Pantoprazole Sodium (Protonix Ec Tab) 40 mg PO DAILY [facility] Last Admin: 12/11/16 09:11 Dose: 40 mg Saccharomyces Boulardii (Florastor) 250 mg PO BID [facility] Fluticasone/Salmeterol (Advair Diskus 250/50) 1 puff INH RBID [facility] - Constitutional Appears: Well - Head Exam Head Exam: ATRAUMATIC, NORMAL INSPECTION, NORMOCEPHALIC - Eye Exam Eye Exam: EOMI, Normal appearance, PERRL Pupil Exam: NORMAL ACCOMODATION, PERRL - ENT Exam ENT Exam: Mucous Membranes Moist, Normal Exam - Neck Exam Neck Exam: Full ROM, Normal Inspection. absent: Lymphadenopathy - Respiratory Exam Respiratory Exam: Decreased Breath Sounds - Cardiovascular Exam Cardiovascular Exam: REGULAR RHYTHM, +S1, +S2 - GI/Abdominal Exam GI & Abdominal Exam: Soft, Diminished Bowel Sounds - Rectal Exam Rectal Exam: Deferred Assessment and Plan (1) Chronic obstructive lung disease Status: Acute (2) Asthma exacerbation Status: Acute (3) Chest wall pain Status: Acute (4) Dyspnea Status: Acute (5) Laryngitis Status: Acute
[2016-12-11] MEDS: Saccharomyces Boulardi 250 mg Cap PO SCH (17:34)
--- NOTE | 2016-12-11 18:48 | CARD ---
APPROVED REPORT EXAM: Two-dimensional and M-mode echocardiogram with Doppler and color Doppler. Other Information Quality : GoodRhythm : NSR INDICATION Dyspnea Chest Pain COPD RISK FACTORS Smoking 2D DIMENSIONS IVSd0.8 (0.7-1.1cm)LVDd4.3 (3.9-5.9cm) PWd1.3 (0.7-1.1cm)LVDs3.3 (2.5-4.0cm) FS (%) 23.4 %LVEF (%)47.2 (>50%) M-Mode DIMENSIONS RVDd1.46 (2.1-3.2cm)Left Atrium (MM)3.54 (2.5-4.0cm) IVSd0.94 (0.7-1.1cm)Aortic Root3.33 (2.2-3.7cm) Aortic Cusp Exc.2.39 (1.5-2.0cm) Mitral Valve MV E Ofdpqeml20.7cm/sMV A Zfkcndnt56.0cm/sE/A ratio1.1 TDI E/Lateral E'0.0E/Medial E'0.0 LEFT VENTRICLE The left ventricle is normal size. There is normal left ventricular wall thickness. Left ventricle systolic function is normal. The Ejection Fraction is >70%. There is normal LV segmental wall motion. The left ventricular diastolic function is normal. No left ventricle thrombus noted on this study. There is no ventricular septal defect visualized. RIGHT VENTRICLE The right ventricle is normal size. The right ventricular systolic function is normal. ATRIA The left atrium size is normal. The right atrium size is normal. The interatrial septum is intact with no evidence for an atrial septal defect. AORTIC VALVE The aortic valve is normal in structure. No aortic regurgitation is present. There is no aortic valvular stenosis. MITRAL VALVE The mitral valve is normal in structure. There is no mitral valve stenosis. Mitral regurgitation is mild. TRICUSPID VALVE The tricuspid valve is normal in structure. There is mild tricuspid regurgitation. There is no tricuspid valve stenosis. PULMONIC VALVE The pulmonary valve is normal in structure. GREAT VESSELS The aortic root is normal in size. <Conclusion> Left ventricle systolic function is normal. The Ejection Fraction is >70%. The right ventricle is normal size. The right ventricular systolic function is normal. Mitral regurgitation is mild. There is mild tricuspid regurgitation.
--- NOTE | 2016-12-11 19:43 | CARD ---
APPROVED REPORT EKG Measurement Heart [id number] OR [id number] <Conclusion> Sinus tachycardia Possible Left atrial enlargement Borderline ECG
--- NOTE | 2016-12-11 22:21 | CP.PCM.PN ---
Subjective - Date & Time of Evaluation Date of Evaluation: 12/11/16 Time of Evaluation: 11:10 - Subjective Subjective: Patient seen and evaluated ECHO Normal Non cardiac pain No further cardiac work up Medical management Objective - Vital Signs/Intake and Output Vital Signs (last 24 hours): Temp Pulse Resp BP Pulse Ox 97.5 F L 69 20 128/77 96 12/11/16 15:37 12/11/16 15:37 12/11/16 15:37 12/11/16 15:37 12/11/16 15:37 Intake and Output: 12/11/16 12/12/16 18:59 06:59 Output Total 200 Balance -200 - Medications Medications: Current Medications Albuterol/Ipratropium (Duoneb 3 Mg/0.5 Mg (3 Ml) Ud) 3 ml INH RQ6 [facility] Last Admin: 12/11/16 19:54 Dose: 3 ml Enoxaparin Sodium (Lovenox) 40 mg SC DAILY [facility] Last Admin: 12/11/16 09:11 Dose: 40 mg Azithromycin (Zithromax 500mg In Ns Addvantage) 500 mg in 250 mls @ 167 mls/hr IVPB Q24H [facility] Last Admin: 12/11/16 12:27 Dose: 167 mls/hr Ceftriaxone Sodium (Rocephin Iv 1 Gm Duplex) 50 mls @ 100 mls/hr IVPB Q24H [facility] Last Admin: 12/11/16 14:37 Dose: 100 mls/hr Methylprednisolone (Solu-Medrol) 40 mg IVP Q8 [facility] Last Admin: 12/11/16 21:15 Dose: 40 mg Montelukast Sodium (Singulair) 10 mg PO HS [facility] Last Admin: 12/11/16 21:15 Dose: 10 mg Nicotine (Nicoderm Cq) 1 patch TD DAILY [facility] Last Admin: 12/11/16 09:11 Dose: 1 patch Pantoprazole Sodium (Protonix Ec Tab) 40 mg PO DAILY [facility] Last Admin: 12/11/16 09:11 Dose: 40 mg Saccharomyces Boulardii (Florastor) 250 mg PO BID [facility] Last Admin: 12/11/16 17:34 Dose: 250 mg Fluticasone/Salmeterol (Advair Diskus 250/50) 1 puff INH RBID [facility]
[2016-12-12] MEDS: Albuterol-Ipratrop 3 mg / 0.5 (3 ml) UD INH SCH ×3 (01:20→14:04)
[2016-12-12] MEDS: MethylPREDNISolone 40 mg Vial IVP SCH ×2 (05:23→14:08)
[2016-12-12 08:24] LABS: BASO % 0.2 % (0.0-2.0); HEMATOCRIT 41.2 % (35.0-51.0); LYMPH # 0.4 K/uL (1.0-4.3); MEAN CELL VOLUME 87.8 fL (80.0-94.0); MEAN CORPUSCULAR HEMOGLOBIN 29.5 pg (27.0-31.0); MEAN CORPUSCULAR HGB CONC 33.6 g/dL (33.0-37.0); MEAN PLATELET VOLUME 9.7 fL (7.2-11.7); MONO # 0.5 K/uL (0.0-0.8); MONO % 2.8 % (0.0-10.0); PLATELET COUNT 182 K/uL (130-400); RED CELL DISTRIBUTION WIDTH 14.6 % (11.5-14.5); WHITE BLOOD COUNT 17.8 K/uL (4.8-10.8)
[2016-12-12 09:07] LABS: CHLORIDE 100 mmol/L (98-107)
[2016-12-12 09:08] LABS: POTASSIUM 4.2 mmol/L (3.6-5.2); SODIUM 139 mmol/L (132-148)
[2016-12-12 09:10] LABS: ALB/GLOB RATIO 1.1 (1.0-2.1); ALKALINE PHOSPHATASE 80 U/L (38-126); ALT/SGPT 52 U/L (21-72); AST/SGOT 31 U/L (17-59); BILIRUBIN,TOTAL 0.5 mg/dL (0.2-1.3); BLOOD UREA NITROGEN 25 mg/dL (9-20); CARBON DIOXIDE 26 mmol/L (22-30); GFR AFRICAN-AMERICAN > 60
[2016-12-12 09:11] LABS: CALCIUM 9.3 mg/dl (8.6-10.4); GLUCOSE,RANDOM 113 mg/dL (75-110); MAGNESIUM 2.3 mg/dL (1.6-2.3); PHOSPHOROUS 3.1 mg/dL (2.5-4.5)
[2016-12-12 09:25] LABS: NEUTROPHIL 90 % (50-75); TOTAL CELLS COUNTED 100
[2016-12-12 09:32] LABS: LARGE PLATELETS PRESENT
[2016-12-12] MEDS: Enoxaparin 40 mg Syringe SC SCH (09:57)
[2016-12-12] MEDS: Saccharomyces Boulardi 250 mg Cap PO SCH (09:58)
[2016-12-12] MEDS: Pantoprazole 40 mg EC Tab PO SCH (09:58)
[2016-12-12] MEDS ORDERED: Fluticasone-Salmeterol 250-50mcg Diskus INH SCH (10:00)
[2016-12-12] MEDS: Azithromycin 500mg/250ML NS 500 MG/250 ML BAG IVPB SCH (12:24)
--- NOTE | 2016-12-12 13:17 | CP.PCM.PN ---
Subjective - Date & Time of Evaluation Date of Evaluation: 12/12/16 Time of Evaluation: 13:16 Objective - Vital Signs/Intake and Output Vital Signs (last 24 hours): Temp Pulse Resp BP Pulse Ox 97.9 F 72 20 145/83 99 12/12/16 08:11 12/12/16 08:11 12/12/16 08:11 12/12/16 08:11 12/12/16 08:11 Intake and Output: 12/12/16 12/12/16 06:59 18:59 Intake Total 500 Balance 500 - Medications Medications: Current Medications Albuterol/Ipratropium (Duoneb 3 Mg/0.5 Mg (3 Ml) Ud) 3 ml INH RQ6 [facility] Last Admin: 12/12/16 08:05 Dose: 3 ml Enoxaparin Sodium (Lovenox) 40 mg SC DAILY [facility] Last Admin: 12/12/16 09:57 Dose: 40 mg Azithromycin (Zithromax 500mg In Ns Addvantage) 500 mg in 250 mls @ 167 mls/hr IVPB Q24H [facility] Last Admin: 12/12/16 12:24 Dose: 167 mls/hr Ceftriaxone Sodium (Rocephin Iv 1 Gm Duplex) 50 mls @ 100 mls/hr IVPB Q24H [facility] Last Admin: 12/11/16 14:37 Dose: 100 mls/hr Methylprednisolone (Solu-Medrol) 40 mg IVP Q8 [facility] Last Admin: 12/12/16 05:23 Dose: 40 mg Montelukast Sodium (Singulair) 10 mg PO HS [facility] Last Admin: 12/11/16 21:15 Dose: 10 mg Nicotine (Nicoderm Cq) 1 patch TD DAILY [facility] Last Admin: 12/12/16 09:58 Dose: 1 patch Pantoprazole Sodium (Protonix Ec Tab) 40 mg PO DAILY [facility] Last Admin: 12/12/16 09:58 Dose: 40 mg Saccharomyces Boulardii (Florastor) 250 mg PO BID [facility] Last Admin: 12/12/16 09:58 Dose: 250 mg Fluticasone/Salmeterol (Advair Diskus 250/50) 1 puff INH RBID [facility] - Labs Labs: 12/12/16 08:02 12/12/16 08:02
--- NOTE | 2016-12-12 13:50 | CP.PCM.PN ---
Subjective - Date & Time of Evaluation Date of Evaluation: 12/12/16 Time of Evaluation: 13:45 - Subjective Subjective: Service for Dr. Maranda Ragland Pt seen/examined at bedside. No acute distress. No events overnight. Pt feeling and breathing better. Saturating well on room air. Does not qualify for home O2. Pulm consulted. No fevers, chills, chest pain, vomiting, diarrhea. Objective - Vital Signs/Intake and Output Vital Signs (last 24 hours): Temp Pulse Resp BP Pulse Ox 97.9 F 72 20 145/83 99 12/12/16 08:11 12/12/16 08:11 12/12/16 08:11 12/12/16 08:11 12/12/16 08:11 Intake and Output: 12/12/16 12/12/16 06:59 18:59 Intake Total 500 Balance 500 - Medications Medications: Current Medications Albuterol/Ipratropium (Duoneb 3 Mg/0.5 Mg (3 Ml) Ud) 3 ml INH RQ6 [facility] Last Admin: 12/12/16 08:05 Dose: 3 ml Enoxaparin Sodium (Lovenox) 40 mg SC DAILY [facility] Last Admin: 12/12/16 09:57 Dose: 40 mg Azithromycin (Zithromax 500mg In Ns Addvantage) 500 mg in 250 mls @ 167 mls/hr IVPB Q24H [facility] Last Admin: 12/12/16 12:24 Dose: 167 mls/hr Ceftriaxone Sodium (Rocephin Iv 1 Gm Duplex) 50 mls @ 100 mls/hr IVPB Q24H [facility] Last Admin: 12/11/16 14:37 Dose: 100 mls/hr Methylprednisolone (Solu-Medrol) 40 mg IVP Q8 [facility] Last Admin: 12/12/16 05:23 Dose: 40 mg Montelukast Sodium (Singulair) 10 mg PO HS [facility] Last Admin: 12/11/16 21:15 Dose: 10 mg Nicotine (Nicoderm Cq) 1 patch TD DAILY [facility] Last Admin: 12/12/16 09:58 Dose: 1 patch Pantoprazole Sodium (Protonix Ec Tab) 40 mg PO DAILY [facility] Last Admin: 12/12/16 09:58 Dose: 40 mg Saccharomyces Boulardii (Florastor) 250 mg PO BID [facility] Last Admin: 12/12/16 09:58 Dose: 250 mg Fluticasone/Salmeterol (Advair Diskus 250/50) 1 puff INH RBID [facility] - Labs Labs: 12/12/16 08:02 12/12/16 08:02 - Constitutional Appears: Non-toxic, No Acute Distress - Head Exam Head Exam: ATRAUMATIC, NORMAL INSPECTION, NORMOCEPHALIC - Eye Exam Eye Exam: EOMI - ENT Exam ENT Exam: Mucous Membranes Moist - Neck Exam Neck Exam: Full ROM, Normal Inspection - Respiratory Exam Respiratory Exam: Wheezes Additional comments: Minimal wheezing, much improved. - Cardiovascular Exam Cardiovascular Exam: REGULAR RHYTHM, +S1, +S2 - GI/Abdominal Exam GI & Abdominal Exam: Soft, Normal Bowel Sounds. absent: Tenderness - Extremities Exam Extremities Exam: Full ROM - Neurological Exam Neurological Exam: Alert, Awake - Psychiatric Exam Psychiatric exam: Normal Affect, Normal Mood - Skin Skin Exam: Dry, Intact, Normal Color, Warm Assessment and Plan - Assessment and Plan (Free Text) Assessment: This is a 56 yo male with past medical hx of COPD presenting with shortness of breath/COPD exacerbation 1. COPD exacerbation -duonebs q 6 hrs -azithromycin 500 mg daily -ceftriaxone 1 g IV daily -solumedrol 40 iv q 8 -singulair 10 daily -pt does not qualify for home o2 and is saturating well on room air -pulm consulted. recs appreciated. -we will add florastor -continue advair -nicotine patch for hx of tobacco abuse 2. GI/DVT ppx -lovenox 40 daily -protonix daily dw Dr. Ragland
[2016-12-12] MEDS: cefTRIAXone IV 1 gm in Dextros 50 ML IVPB SCH (15:15)
[2016-12-12 15:22] VITALS: BP 114/71; PULSE 87; TEMP 97.6; O2SAT 96
== END 2016-12-12 17:55 | disposition home or self-care (01) | DRG 88 ==
LOC: C.ER 04:53 → C.9E 06:15 → C.6T 07:50 → OBSVTOIN 12-11 15:21
PROVIDERS: ADMIT Internal Medicine Nephrology; ATTEND Internal Medicine Nephrology
DX: J44.1 Chronic obstructive pulmonary disease with (acute) exacerbation (principal); J45.901 Unspecified asthma with (acute) exacerbation; F17.200 Nicotine dependence, unspecified, uncomplicated; R07.89 Other chest pain; J04.0 Acute laryngitis

== ENCOUNTER 2017-08-04 23:09 | Inpatient (IN) | payer MEDICAID ==
[2017-08-04 23:25] LABS: BASO # 0.1 K/uL (0.0-0.2); RED CELL DISTRIBUTION WIDTH 13.7 % (11.5-14.5)
[2017-08-04] MEDS ORDERED: Albuterol 0.083% Inhal Sol (2.5 mg/3 mL) UD INH STA (23:25)
[2017-08-04] MEDS ORDERED: Magnesium Sulfate 1 gm in D5W 1 GM/100 ML BAG IVPB ONE ×3 (23:26→23:49)
[2017-08-04 23:28] LABS: BASO % 0.5 % (0.0-2.0); EOS # 0.2 K/uL (0.0-0.7); EOS % 1.4 % (0.0-4.0); HEMOGLOBIN 15.4 g/dL (12.0-18.0); LYMPH # 1.3 K/uL (1.0-4.3); LYMPH % 7.4 % (20.0-40.0); MEAN CELL VOLUME 90.2 fL (80.0-94.0); MEAN CORPUSCULAR HGB CONC 34.4 g/dL (33.0-37.0); MEAN PLATELET VOLUME 9.5 fL (7.2-11.7); MONO % 5.7 % (0.0-10.0); NEUT # 14.8 K/uL (1.8-7.0); PLATELET COUNT 212 K/uL (130-400); RBC 4.97 Mil/uL (4.40-5.90); WHITE BLOOD COUNT 17.4 K/uL (4.8-10.8)
--- NOTE | 2017-08-04 23:28 | C.PDOC ---
History Of Present Illness 56yo male with history of asthma requiring admission, presents to ED today for evaluation of shortness of breath present since 1400 today. Patient states he used his inhaler treatment with no relief of symptoms. He denies any weakness, numbness, and offers no other medical complaints. Time Seen by Provider: 08/04/17 23:20 Chief Complaint (Nursing): Shortness Of Breath History Per: Patient History/Exam Limitations: no limitations Onset/Duration Of Symptoms: Hrs Current Symptoms Are (Timing): Still Present Current Respiratory Medications: See Home Med List Associated Symptoms: denies: Fever, Chills Past Medical History Reviewed: Historical Data, Nursing Documentation, Vital Signs Vital Signs: Last Vital Signs Temp 98.3 F 08/05/17 02:31 Pulse 109 H 08/05/17 02:53 Resp 23 08/05/17 02:53 BP 120/65 08/05/17 02:31 Pulse Ox 95 08/05/17 02:53 - Medical History PMH: Asthma, COPD Denies: Chronic Kidney Disease Surgical History: No Surg Hx Family History: States: Unknown Family Hx - Social History Hx Tobacco Use: Yes (stopped smoking 3 years ago) Hx Alcohol Use: No Hx Substance Use: No - Immunization History Hx Tetanus Toxoid Vaccination: No Hx Influenza Vaccination: Yes Hx Pneumococcal Vaccination: No Review Of Systems Except As Marked, All Systems Reviewed And Found Negative. Constitutional: Negative for: Fever, Chills Respiratory: Positive for: Shortness of Breath Physical Exam - Physical Exam Appears: Non-toxic, No Acute Distress Skin: Normal Color Head: Atraumatic, Normacephalic Eye(s): bilateral: Normal Inspection, PERRL, EOMI Neck: Normal ROM, Supple Chest: Symmetrical Cardiovascular: Rhythm Regular Respiratory: Wheezing, Other (speaking in partial sentences, respiratory rate of 32) Gastrointestinal/Abdominal: Normal Exam, Soft, No Tenderness Extremity: Normal ROM, No Pedal Edema Neurological/Psych: Oriented x3 ED Course And Treatment - Laboratory Results Result Diagrams: 08/04/17 23:20 08/04/17 23:20 ECG: Interpreted By Me, Viewed By Me ECG Rhythm: Sinus Tachycardia ECG Interpretation: Normal Interpretation Of ECG: No ST/T wave changes Rate From EC O2 Sat by Pulse Oximetry: 87 (with supplemental O2) Pulse Ox Interpretation: Abnormal - Radiology CXR: Interpreted by Me (23:52), Viewed By Me CXR Interpretation: Yes: No Acute Disease, Other (normal cardiac silhouette) Critical Care Time - Critical Care Note Total Time (in mins): 45 Documented critical care: time excludes all time spent performing seperately billable procedures. Medical Decision Making Medical Decision Making: Impression: Acute asthma exacerbation Plan: --EKG --Labs --CXR --Albuterol 10mg INH --Magnesium Sulfate 2gm IVPB -- ABG Time: 2345 Upon re-evaluation, patient undergoing 10mg Albuterol inhalation along with 2gm Magnesium IV. Pulse ox is at 92%, respiratory rate 28 and heart rate is 132. Time: 0039 ABG reviewed, patient pO2 of 55 BIPAP ordered. Time: 0120 Repeat EKG: Sinus Tachycardia Rate: 119 QS in lead 3 Non-specific ST changes in V4-V6 Possible old inferior wall NV No acute changes, no prior for comparison Time: 0152 Patient seen and evaluated by Dr. Guru Ragland, and will admit under his service. Disposition - Disposition Disposition: HOSPITALIZED Disposition Time: 03:59 Condition: FAIR - Clinical Impression Clinical Impression: Asthma exacerbation - Scribe Statement The provider has reviewed the documentation as recorded by the Scribe (Alis Li) Provider Attestation: All medical record entries made by the Scribe were at my direction and personally dictated by me. I have reviewed the chart and agree that the record accurately reflects my personal performance of the history, physical exam, medical decision making, and the department course for this patient. I have also personally directed, reviewed, and agree with the discharge instructions and disposition.
[2017-08-04 23:36] LABS: CALCIUM 8.9 mg/dl (8.6-10.4); GFR AFRICAN-AMERICAN > 60; GFR NON-AFRICAN AMERICAN > 60
[2017-08-04 23:39] LABS: ALB/GLOB RATIO 1.1 (1.0-2.1); ALBUMIN 4.5 g/dL (3.5-5.0); ALT/SGPT 20 U/L (21-72); AST/SGOT 40 U/L (17-59); BLOOD UREA NITROGEN 25 mg/dL (9-20)
[2017-08-04 23:48] LABS: BANDS 1 % (0-2); EOSINOPHIL 2 % (0-4); LYMPHOCYTE 7 % (20-40); MONOCYTE 5 % (0-10); NEUTROPHIL 85 % (50-75); TOTAL CELLS COUNTED 100
[2017-08-04 23:49] LABS: PLATELET ESTIMATE NORMAL (NORMAL)
[2017-08-04 23:50] LABS: B-TYPE NATRIURETIC PEPTIDE 26.6 pg/mL (0-900); CK-MB 1.64 ng/mL (0.0-3.38)
[2017-08-04] MEDS ORDERED: Albuterol 0.083% Inhal Sol (2.5 mg/3 mL) UD ONE (23:52)
[2017-08-05] MEDS: Magnesium Sulfate 1 gm in D5W 1 GM/100 ML BAG IVPB SCH ×2 (00:07)
[2017-08-05 00:24] LABS: ARTERIAL BLOOD GAS HCO3 25.2 mmol/L (21-28); ARTERIAL BLOOD GAS HEMOGLOBIN 15.1 g/dL (11.7-17.4); ARTERIAL BLOOD GAS PCO2 36 mm/Hg (35-45); ARTERIAL BLOOD GAS PH 7.44 (7.35-7.45); ARTERIAL BLOOD GAS PO2 55 mm/Hg (80-100); ARTERIAL BLOOD GAS TCO2 25.6 mmol/L (22-28)
[2017-08-05] MEDS ORDERED: Lactated Ringer's 1,000 ML IV ONE (01:00)
[2017-08-05] MEDS ORDERED: Magnesium Sulfate 1 gm in D5W 1 GM/100 ML BAG IVPB ONE (01:02)
[2017-08-05] MEDS: MethylPREDNISolone 40 mg Vial IV SCH ×4 (01:23→18:32)
[2017-08-05] MEDS ORDERED: cefTRIAXone IV 1 gm in Dextros 50 ML IVPB ONE (01:36)
[2017-08-05] MEDS: cefTRIAXone IV 1 gm in Dextros 50 ML IVPB SCH (01:37)
[2017-08-05 01:45] LABS: BARBITURATES, UR NEGATIVE (NEGATIVE); OPIATES, UR NEGATIVE (NEGATIVE); PHENCYCLIDINE, UR NEGATIVE (NEGATIVE)
--- NOTE | 2017-08-05 01:45 | CP.PCM.CON ---
History of Present Illness - History of Present Illness History of Present Illness: 56 y/o male with pmx of COPD, (previous smoker) denies recent smoking ( caroxyhemoglobin high), presents to [facility] with c/o SOB, dyspnea on exertion and difficult breathing. Patient c/o sore throat, denies any dizziness , no recent travel, no pets, no sick contact. Review of Systems - Review of Systems Review of Systems: as per HPI Past Patient History - Past Social History Smoking Status: Current Some Days Smoker - CARDIAC Hx Cardiac Disorders: No - PULMONARY Hx Asthma: Yes Hx Chronic Obstructive Pulmonary Disease (COPD): Yes - NEUROLOGICAL Hx Neurological Disorder: No - HEENT Hx HEENT Problems: No - RENAL Hx Chronic Kidney Disease: No - ENDOCRINE/METABOLIC Hx Endocrine Disorders: No - HEMATOLOGICAL/ONCOLOGICAL Hx Blood Disorders: No - INTEGUMENTARY Hx Dermatological Problems: No - MUSCULOSKELETAL/RHEUMATOLOGICAL Hx Falls: No - GASTROINTESTINAL Hx Gastrointestinal Disorders: No - GENITOURINARY/GYNECOLOGICAL Hx Genitourinary Disorders: No - PSYCHIATRIC Hx Substance Use: No - SURGICAL HISTORY Hx Surgeries: Yes Other/Comment: nose surgery - ANESTHESIA Hx Anesthesia: Yes Hx Anesthesia Reactions: No Meds Allergies/Adverse Reactions: Allergies Allergy/AdvReac Type Severity Reaction Status Date / Time HAYFEVER Allergy Uncoded 12/09/16 05:03 - Medications Medications: Current Medications Lactated Ringer's (Lactated Ringer's) 1,000 mls @ 1,000 mls/hr IV .Q1H ONE Stop: 08/05/17 01:59 Last Admin: 08/05/17 01:21 Dose: 1,000 mls/hr Doxycycline Hyclate 100 mg/ (Sodium Chloride) 100 mls @ 100 mls/hr IVPB Q12H [facility] PRN Reason: Protocol Ceftriaxone Sodium (Rocephin Iv 1 Gm Duplex) 50 mls @ 100 mls/hr IVPB Q24H [place] PRN Reason: Protocol Last Admin: 08/05/17 01:37 Dose: 100 mls/hr Methylprednisolone (Solu-Medrol) 40 mg IV Q6H [facility] Last Admin: 08/05/17 01:23 Dose: 40 mg Physical Exam - Head Exam Head Exam: ATRAUMATIC, NORMAL INSPECTION, NORMOCEPHALIC - Eye Exam Pupil Exam: NORMAL ACCOMODATION - ENT Exam ENT Exam: Mucous Membranes Dry - Respiratory Exam Respiratory Exam: Accessory Muscle Use, Clear to Auscultation Bilateral, Respiratory Distress. absent: Rhonchi, Wheezes, Stridor - Cardiovascular Exam Cardiovascular Exam: Tachycardia, +S1, +S2, +S4, Systolic Murmur - GI/Abdominal Exam GI & Abdominal Exam: Normal Bowel Sounds, Soft - Extremities Exam Extremities exam: Negative for: pedal edema Results - Vital Signs Recent Vital Signs: Last Vital Signs Temp 97.5 F L 08/04/17 23:12 Pulse 143 H 08/04/17 23:12 Resp 26 H 08/04/17 23:35 BP 140/85 08/04/17 23:12 Pulse Ox 87 L 08/05/17 01:24 - Labs Result Diagrams: 08/04/17 23:20 08/04/17 23:20 Labs: Laboratory Results - last 24 hr 08/04/17 08/04/17 08/05/17 23:20 23:20 00:02 WBC 17.4 H RBC 4.97 Hgb 15.4 Hct 44.8 MCV 90.2 D MCH 31.0 MCHC 34.4 RDW 13.7 Plt Count 212 MPV 9.5 Neut % (Auto) 85.0 H Lymph % (Auto) 7.4 L [place] % (Auto) 5.7 Eos % (Auto) 1.4 Baso % (Auto) 0.5 Neut # (Auto) 14.8 H Lymph # (Auto) 1.3 [place] # (Auto) 1.0 H Eos # (Auto) 0.2 Baso # (Auto) 0.1 Neutrophils % (Manual) 85 H Band Neutrophils % 1 Lymphocytes % (Manual) 7 L Monocytes % (Manual) 5 Eosinophils % (Manual) 2 Platelet Estimate Normal RBC Morphology Normal Puncture Site L rad pCO2 36 pO2 55 L HCO3 25.2 ABG pH 7.44 ABG Total CO2 25.6 ABG O2 Saturation 93.0 L ABG Base Excess 0.7 ABG Hemoglobin 15.1 ABG Carboxyhemoglobin 2.1 H POC ABG HHb (Measured) 6.7 H ABG Methemoglobin 1.6 Albert Test Na Hgb O2 Saturation 89.6 L Liter Flow 8.0 Sodium 142 Potassium 5.3 H Chloride 106 Carbon Dioxide 21 L Anion Gap 20 BUN 25 H Creatinine 1.1 Est GFR ( Amer) > 60 Est GFR (Non-Af Amer) > 60 Random Glucose 139 H Calcium 8.9 Total Bilirubin 0.9 AST 40 ALT 20 L D Alkaline Phosphatase 96 Total Creatine Kinase 225 H CK-MB (Mass) 1.64 Troponin I 0.0200 NT-Pro-B Natriuret Pep 26.6 Total Protein 8.6 H Albumin 4.5 Globulin 4.1 H Albumin/Globulin Ratio 1.1 Assessment & Plan - Assessment and Plan (Free Text) Plan: ACute COPD exacerbation: patient strongly advised to stop smoking ([place]), continue solumedorl and duonebs q6hrs, add singular -Leukocytosis: check lactic, empirically on doxy an d ceftriaxone (QTC 643), check procalcitonin -at risk of CAD: will benefit from antiplatelet therapy and check trop/ck and lipid panel for statin, patient strongly advised to stop smoking -dvt ppx lovenox PUD ppx pepcid Patient will benefit from bi-pap PRN. d/w Dr. Ye - Date & Time Date: 08/05/17 Time: 01:45
[2017-08-05 01:56] LABS: HDL CHOLESTEROL 55 mg/dL (30-70)
[2017-08-05 02:07] LABS: LDL CHOLESTEROL 92 mg/dL (0-129)
[2017-08-05 02:08] LABS: B-TYPE NATRIURETIC PEPTIDE 45.8 pg/mL (0-900)
[2017-08-05 02:27] LABS: BENZODIAZEPINES, UR NEGATIVE (NEGATIVE)
[2017-08-05] MEDS ORDERED: Albuterol-Ipratrop 3 mg / 0.5 (3 ml) UD INH PRN (04:40)
[2017-08-05] MEDS ORDERED: Albuterol 0.083% Inhal Sol (2.5 mg/3 mL) UD ONE (04:43)
[2017-08-05] MEDS ORDERED: Albuterol 0.083% Inhal Sol (2.5 mg/3 mL) UD INH PRN (04:45)
[2017-08-05 06:01] LABS: URINE BILIRUBIN NEGATIVE (NEGATIVE); URINE BLOOD NEGATIVE (NEGATIVE); URINE CLARITY Clear (Clear); URINE COLOR Yellow (YELLOW); URINE GLUCOSE (UA) 3+ mg/dL (Normal); URINE LEUKOCYTE ESTERASE NEG Leu/uL (Negative); URINE PROTEIN NEGATIVE (NEGATIVE); URINE UROBILINOGEN NORMAL mg/dL (0.2-1.0)
[2017-08-05 06:24] LABS: BASO % 0.1 % (0.0-2.0); HEMOGLOBIN 14.2 g/dL (12.0-18.0); LYMPH # 0.2 K/uL (1.0-4.3); LYMPH % 1.1 % (20.0-40.0); MEAN CELL VOLUME 90.7 fL (80.0-94.0); MEAN CORPUSCULAR HEMOGLOBIN 30.6 pg (27.0-31.0); MEAN CORPUSCULAR HGB CONC 33.7 g/dL (33.0-37.0); MONO # 0.1 K/uL (0.0-0.8); MONO % 0.5 % (0.0-10.0); NEUT # 17.3 K/uL (1.8-7.0); NEUT % 98.3 % (50.0-75.0); NRBC % 0.1 % (0.0-2.0); PLATELET COUNT 193 K/uL (130-400); RBC 4.64 Mil/uL (4.40-5.90); RED CELL DISTRIBUTION WIDTH 13.9 % (11.5-14.5); WHITE BLOOD COUNT 17.6 K/uL (4.8-10.8)
[2017-08-05 06:41] LABS: ALB/GLOB RATIO 1.2 (1.0-2.1); ALBUMIN 4.2 g/dL (3.5-5.0); ALT/SGPT 17 U/L (21-72); AST/SGOT 28 U/L (17-59); BLOOD UREA NITROGEN 20 mg/dL (9-20); CALCIUM 8.9 mg/dl (8.6-10.4); GFR AFRICAN-AMERICAN > 60; GFR NON-AFRICAN AMERICAN > 60
[2017-08-05] MEDS: Albuterol-Ipratrop 3 mg / 0.5 (3 ml) UD INH SCH ×3 (07:50→20:24)
--- NOTE | 2017-08-05 08:10 | RAD ---
Chest x-ray single frontal view History: Shortness of breath. Comparison: 12/09/2016 Findings: Biapical pleural thickening with upper lobe granulomatous changes. Mild venous congestion. Bilateral hilar prominence. Mild basilar atelectasis with mild nodularity at the right lung base. Tortuous aorta. Degenerative changes in the spine and shoulders. Impression: Biapical pleural thickening with upper lobe granulomatous changes. Mild venous congestion. Bilateral hilar prominence. Mild basilar atelectasis with mild nodularity at the right lung base. Tortuous aorta.
[2017-08-05 09:15] LABS: LYMPHOCYTE 1 % (20-40); MONOCYTE 1 % (0-10); NEUTROPHIL 98 % (50-75); TOTAL CELLS COUNTED 100
[2017-08-05 09:16] LABS: PLATELET ESTIMATE NORMAL (NORMAL)
[2017-08-05] MEDS: Enoxaparin 40 mg Syringe SC SCH (09:50)
[2017-08-05] MEDS ORDERED: Potassium Phosphate 15 MMOLE in Sodium Chloride 0.9% 250 ML IVPB ONE (10:35)
[2017-08-05] MEDS ORDERED: Potassium & Sodium Phosphate PO ONE (10:45)
--- NOTE | 2017-08-05 18:15 | CARD ---
APPROVED REPORT EKG Measurement Heart [id number] <Conclusion> Sinus tachycardia Otherwise normal ECG
--- NOTE | 2017-08-05 18:40 | CP.PCM.HP ---
Past Patient History - Past Medical History & Family History Past Medical History?: Yes - Past Social History Smoking Status: Former Smoker - CARDIAC Hx Cardiac Disorders: No - PULMONARY Hx Chronic Obstructive Pulmonary Disease (COPD): Yes - NEUROLOGICAL Hx Neurological Disorder: No - HEENT Hx HEENT Problems: No - RENAL Hx Chronic Kidney Disease: No - ENDOCRINE/METABOLIC Hx Endocrine Disorders: No - HEMATOLOGICAL/ONCOLOGICAL Hx Blood Disorders: No - INTEGUMENTARY Hx Dermatological Problems: No - MUSCULOSKELETAL/RHEUMATOLOGICAL Hx Falls: No - GASTROINTESTINAL Hx Gastrointestinal Disorders: No - GENITOURINARY/GYNECOLOGICAL Hx Genitourinary Disorders: No - PSYCHIATRIC Hx Substance Use: No - SURGICAL HISTORY Hx Surgeries: Yes Other/Comment: nose surgery - ANESTHESIA Hx Anesthesia: Yes Hx Anesthesia Reactions: No Hx Malignant Hyperthermia: No Has any member of the family had a problem w/ anesthesia?: No Meds Allergies/Adverse Reactions: Allergies Allergy/AdvReac Type Severity Reaction Status Date / Time HAYFEVER Allergy Uncoded 12/09/16 05:03 Physical Exam - Constitutional Appears: Well - Head Exam Head Exam: ATRAUMATIC, NORMAL INSPECTION, NORMOCEPHALIC - Eye Exam Eye Exam: EOMI, Normal appearance, PERRL Pupil Exam: NORMAL ACCOMODATION, PERRL - ENT Exam ENT Exam: Mucous Membranes Moist, Normal Exam - Neck Exam Neck exam: Positive for: Normal Inspection Results - Vital Signs Recent Vital Signs: Last Vital Signs Temp 98.1 F 08/05/17 16:00 Pulse 103 H 08/05/17 17:00 Resp 24 08/05/17 17:00 BP 123/64 08/05/17 16:16 Pulse Ox 95 08/05/17 17:00 - Labs Result Diagrams: 08/05/17 06:01 08/05/17 06:01 Labs: Laboratory Results - last 24 hr 08/04/17 08/04/17 08/05/17 23:20 23:20 00:02 WBC 17.4 H RBC 4.97 Hgb 15.4 Hct 44.8 MCV 90.2 D MCH 31.0 MCHC 34.4 RDW 13.7 Plt Count 212 MPV 9.5 Neut % (Auto) 85.0 H Lymph % (Auto) 7.4 L [place] % (Auto) 5.7 Eos % (Auto) 1.4 Baso % (Auto) 0.5 Neut # (Auto) 14.8 H Lymph # (Auto) 1.3 [place] # (Auto) 1.0 H Eos # (Auto) 0.2 Baso # (Auto) 0.1 Neutrophils % (Manual) 85 H Band Neutrophils % 1 Lymphocytes % (Manual) 7 L Monocytes % (Manual) 5 Eosinophils % (Manual) 2 Platelet Estimate Normal RBC Morphology Normal Puncture Site L rad pCO2 36 pO2 55 L HCO3 25.2 ABG pH 7.44 ABG Total CO2 25.6 ABG O2 Saturation 93.0 L ABG Base Excess 0.7 ABG Hemoglobin 15.1 ABG Carboxyhemoglobin 2.1 H POC ABG HHb (Measured) 6.7 H ABG Methemoglobin 1.6 Albert Test Na Hgb O2 Saturation 89.6 L Liter Flow 8.0 Sodium 142 Potassium 5.3 H Chloride 106 Carbon Dioxide 21 L Anion Gap 20 BUN 25 H Creatinine 1.1 Est GFR ( Amer) > 60 Est GFR (Non-Af Amer) > 60 POC Glucose (mg/dL) Random Glucose 139 H Lactic Acid Calcium 8.9 Phosphorus Magnesium Total Bilirubin 0.9 AST 40 ALT 20 L D Alkaline Phosphatase 96 Total Creatine Kinase 225 H CK-MB (Mass) 1.64 Troponin I 0.0200 NT-Pro-B Natriuret Pep 26.6 Total Protein 8.6 H Albumin 4.5 Globulin 4.1 H Albumin/Globulin Ratio 1.1 Triglycerides Cholesterol LDL Cholesterol Direct HDL Cholesterol Procalcitonin Urine Color Urine Clarity Urine pH Ur Specific [place] Urine Protein Urine Glucose (UA) Urine Ketones Urine Blood Urine Nitrate Urine Bilirubin Urine Urobilinogen Ur Leukocyte Esterase Urine WBC (Auto) Urine RBC (Auto) Urine Opiates Screen Urine Methadone Screen Ur Barbiturates Screen Ur Phencyclidine Scrn Ur Amphetamines Screen U Benzodiazepines Scrn U Oth Cocaine Metabols U Cannabinoids Screen 08/05/17 08/05/17 08/05/17 01:14 01:34 01:34 WBC RBC Hgb Hct MCV MCH MCHC RDW Plt Count MPV Neut % (Auto) Lymph % (Auto) [place] % (Auto) Eos % (Auto) Baso % (Auto) Neut # (Auto) Lymph # (Auto) [place] # (Auto) Eos # (Auto) Baso # (Auto) Neutrophils % (Manual) Band Neutrophils % Lymphocytes % (Manual) Monocytes % (Manual) Eosinophils % (Manual) Platelet Estimate RBC Morphology Puncture Site pCO2 pO2 HCO3 ABG pH ABG Total CO2 ABG O2 Saturation ABG Base Excess ABG Hemoglobin ABG Carboxyhemoglobin POC ABG HHb (Measured) ABG Methemoglobin Albert Test Hgb O2 Saturation Liter Flow Sodium Potassium Chloride Carbon Dioxide Anion Gap BUN Creatinine Est GFR ( Amer) Est GFR (Non-Af Amer) POC Glucose (mg/dL) Random Glucose Lactic Acid Calcium Phosphorus Magnesium Total Bilirubin AST ALT Alkaline Phosphatase Total Creatine Kinase CK-MB (Mass) Troponin I < 0.0120 NT-Pro-B Natriuret Pep 45.8 Total Protein Albumin Globulin Albumin/Globulin Ratio Triglycerides 54 Cholesterol 160 LDL Cholesterol Direct 92 HDL Cholesterol 55 Procalcitonin < 0.05 L Urine Color Urine Clarity Urine pH Ur Specific [place] Urine Protein Urine Glucose (UA) Urine Ketones Urine Blood Urine Nitrate Urine Bilirubin Urine Urobilinogen Ur Leukocyte Esterase Urine WBC (Auto) Urine RBC (Auto) Urine Opiates Screen Negative Urine Methadone Screen Negative Ur Barbiturates Screen Negative Ur Phencyclidine Scrn Negative Ur Amphetamines Screen Negative U Benzodiazepines Scrn Negative U Oth Cocaine Metabols Negative U Cannabinoids Screen Negative 08/05/17 08/05/17 08/05/17 01:37 05:56 06:01 WBC 17.6 H RBC 4.64 Hgb 14.2 Hct 42.1 MCV 90.7 MCH 30.6 MCHC 33.7 RDW 13.9 Plt Count 193 MPV 10.0 Neut % (Auto) 98.3 H Lymph % (Auto) 1.1 L [place] % (Auto) 0.5 Eos % (Auto) 0.0 Baso % (Auto) 0.1 Neut # (Auto) 17.3 H Lymph # (Auto) 0.2 L [place] # (Auto) 0.1 Eos # (Auto) 0.0 Baso # (Auto) 0.0 Neutrophils % (Manual) 98 H Band Neutrophils % Lymphocytes % (Manual) 1 L Monocytes % (Manual) 1 Eosinophils % (Manual) Platelet Estimate Normal RBC Morphology Normal Puncture Site pCO2 pO2 HCO3 ABG pH ABG Total CO2 ABG O2 Saturation ABG Base Excess ABG Hemoglobin ABG Carboxyhemoglobin POC ABG HHb (Measured) ABG Methemoglobin Albert Test Hgb O2 Saturation Liter Flow Sodium Potassium Chloride Carbon Dioxide Anion Gap BUN Creatinine Est GFR ( Amer) Est GFR (Non-Af Amer) POC Glucose (mg/dL) Random Glucose Lactic Acid 3.0 H Calcium Phosphorus Magnesium Total Bilirubin AST ALT Alkaline Phosphatase Total Creatine Kinase CK-MB (Mass) Troponin I NT-Pro-B Natriuret Pep Total Protein Albumin Globulin Albumin/Globulin Ratio Triglycerides Cholesterol LDL Cholesterol Direct HDL Cholesterol Procalcitonin Urine Color Yellow Urine Clarity Clear Urine pH 5.0 Ur Specific [place] 1.020 Urine Protein Negative Urine Glucose (UA) 3+ H Urine Ketones Negative Urine Blood Negative Urine Nitrate Negative Urine Bilirubin Negative Urine Urobilinogen Normal Ur Leukocyte Esterase Neg Urine WBC (Auto) 1 Urine RBC (Auto) < 1 Urine Opiates Screen Urine Methadone Screen Ur Barbiturates Screen Ur Phencyclidine Scrn Ur Amphetamines Screen U Benzodiazepines Scrn U Oth Cocaine Metabols U Cannabinoids Screen 08/05/17 08/05/17 08/05/17 06:01 07:20 09:13 WBC RBC Hgb Hct MCV MCH MCHC RDW Plt Count MPV Neut % (Auto) Lymph % (Auto) [place] % (Auto) Eos % (Auto) Baso % (Auto) Neut # (Auto) Lymph # (Auto) [place] # (Auto) Eos # (Auto) Baso # (Auto) Neutrophils % (Manual) Band Neutrophils % Lymphocytes % (Manual) Monocytes % (Manual) Eosinophils % (Manual) Platelet Estimate RBC Morphology Puncture Site pCO2 pO2 HCO3 ABG pH ABG Total CO2 ABG O2 Saturation ABG Base Excess ABG Hemoglobin ABG Carboxyhemoglobin POC ABG HHb (Measured) ABG Methemoglobin Albert Test Hgb O2 Saturation Liter Flow Sodium 142 Potassium 3.9 Chloride 105 Carbon Dioxide 21 L Anion Gap 20 BUN 20 Creatinine 1.0 Est GFR ( Amer) > 60 Est GFR (Non-Af Amer) > 60 POC Glucose (mg/dL) 122 H Random Glucose 178 H Lactic Acid Calcium 8.9 Phosphorus 2.0 L Magnesium 2.3 Total Bilirubin 0.4 AST 28 ALT 17 L Alkaline Phosphatase 88 Total Creatine Kinase CK-MB (Mass) Troponin I 0.0170 NT-Pro-B Natriuret Pep Total Protein 7.6 Albumin 4.2 Globulin 3.4 Albumin/Globulin Ratio 1.2 Triglycerides Cholesterol LDL Cholesterol Direct HDL Cholesterol Procalcitonin Urine Color Urine Clarity Urine pH Ur Specific [place] Urine Protein Urine Glucose (UA) Urine Ketones Urine Blood Urine Nitrate Urine Bilirubin Urine Urobilinogen Ur Leukocyte Esterase Urine WBC (Auto) Urine RBC (Auto) Urine Opiates Screen Urine Methadone Screen Ur Barbiturates Screen Ur Phencyclidine Scrn Ur Amphetamines Screen U Benzodiazepines Scrn U Oth Cocaine Metabols U Cannabinoids Screen 08/05/17 16:47 WBC RBC Hgb Hct MCV MCH MCHC RDW Plt Count MPV Neut % (Auto) Lymph % (Auto) [place] % (Auto) Eos % (Auto) Baso % (Auto) Neut # (Auto) Lymph # (Auto) [place] # (Auto) Eos # (Auto) Baso # (Auto) Neutrophils % (Manual) Band Neutrophils % Lymphocytes % (Manual) Monocytes % (Manual) Eosinophils % (Manual) Platelet Estimate RBC Morphology Puncture Site pCO2 pO2 HCO3 ABG pH ABG Total CO2 ABG O2 Saturation ABG Base Excess ABG Hemoglobin ABG Carboxyhemoglobin POC ABG HHb (Measured) ABG Methemoglobin Albert Test Hgb O2 Saturation Liter Flow Sodium Potassium Chloride Carbon Dioxide Anion Gap BUN Creatinine Est GFR ( Amer) Est GFR (Non-Af Amer) POC Glucose (mg/dL) Random Glucose Lactic Acid Calcium Phosphorus Magnesium Total Bilirubin AST ALT Alkaline Phosphatase Total Creatine Kinase CK-MB (Mass) Troponin I < 0.0120 NT-Pro-B Natriuret Pep Total Protein Albumin Globulin Albumin/Globulin Ratio Triglycerides Cholesterol LDL Cholesterol Direct HDL Cholesterol Procalcitonin Urine Color Urine Clarity Urine pH Ur Specific [place] Urine Protein Urine Glucose (UA) Urine Ketones Urine Blood Urine Nitrate Urine Bilirubin Urine Urobilinogen Ur Leukocyte Esterase Urine WBC (Auto) Urine RBC (Auto) Urine Opiates Screen Urine Methadone Screen Ur Barbiturates Screen Ur Phencyclidine Scrn Ur Amphetamines Screen U Benzodiazepines Scrn U Oth Cocaine Metabols U Cannabinoids Screen
[2017-08-06] MEDS: cefTRIAXone IV 1 gm in Dextros 50 ML IVPB SCH (00:55)
[2017-08-06] MEDS: MethylPREDNISolone 40 mg Vial IV SCH ×4 (00:55→21:20)
[2017-08-06] MEDS: Albuterol-Ipratrop 3 mg / 0.5 (3 ml) UD INH SCH ×6 (01:37→20:26)
[2017-08-06] MEDS: Enoxaparin 40 mg Syringe SC SCH (09:06)
--- NOTE | 2017-08-06 09:45 | CP.PCM.PN ---
Subjective - Date & Time of Evaluation Date of Evaluation: 08/06/17 Time of Evaluation: 08:00 - Subjective Subjective: PGY 2 medicine progress not for Dr. Eulalia Ragland: Patient was seen and examined at bedside this morning. He still feels short of breath and has some tightness in his chest. He denies all other symptoms. He is eating well. He states he never followed up outpatient for stress test after his past admission. Otherwise no new complaints. Objective - Vital Signs/Intake and Output Vital Signs (last 24 hours): Temp Pulse Resp BP Pulse Ox 98.2 F 79 20 116/71 99 08/06/17 08:29 08/06/17 08:29 08/06/17 08:29 08/06/17 08:29 08/06/17 08:29 Intake and Output: 08/06/17 08/06/17 06:59 18:59 Intake Total 600 Balance 600 - Medications Medications: Current Medications Albuterol Sulfate (Albuterol 0.083% Inhal [place] (2.5 Mg/3 Ml) Ud) 2.5 mg INH RQ2 PRN PRN Reason: Wheezing Last Admin: 08/05/17 04:46 Dose: 2.5 mg Albuterol/Ipratropium (Duoneb 3 Mg/0.5 Mg (3 Ml) Ud) 3 ml INH RQ4 [place] Last Admin: 08/06/17 08:00 Dose: 3 ml Albuterol/Ipratropium (Duoneb 3 Mg/0.5 Mg (3 Ml) Ud) 3 ml INH RQ2 PRN PRN Reason: Wheezing Clopidogrel Bisulfate (Plavix) 75 mg PO DAILY [place] Last Admin: 08/06/17 09:06 Dose: 75 mg Enoxaparin Sodium (Lovenox) 40 mg SC DAILY [place] Last Admin: 08/06/17 09:06 Dose: 40 mg Doxycycline Hyclate 100 mg/ (Sodium Chloride) 100 mls @ 100 mls/hr IVPB Q12H [place] PRN Reason: Protocol Last Admin: 08/06/17 01:33 Dose: 100 mls/hr Ceftriaxone Sodium (Rocephin Iv 1 Gm Duplex) 50 mls @ 100 mls/hr IVPB Q24H [place] PRN Reason: Protocol Last Admin: 08/06/17 00:55 Dose: 100 mls/hr Methylprednisolone (Solu-Medrol) 40 mg IV Q6H [facility] Last Admin: 08/06/17 08:06 Dose: 40 mg Pantoprazole Sodium (Protonix Inj) 40 mg IVP Q12H [facility] Last Admin: 08/06/17 03:57 Dose: 40 mg Tiotropium [place] (Spiriva) 18 mcg INH RQ24 [facility] - Labs Labs: 08/05/17 06:01 08/05/17 06:01 - Constitutional Appears: Non-toxic, No Acute Distress, Unkempt - Head Exam Head Exam: ATRAUMATIC - Eye Exam Eye Exam: EOMI Pupil Exam: NORMAL ACCOMODATION - ENT Exam ENT Exam: Mucous Membranes Moist - Respiratory Exam Respiratory Exam: Wheezes. absent: Accessory Muscle Use, Respiratory Distress - Cardiovascular Exam Cardiovascular Exam: REGULAR RHYTHM, +S1, +S2 - GI/Abdominal Exam GI & Abdominal Exam: Soft, Normal Bowel Sounds. absent: Distended, Firm, Guarding, Tenderness - Extremities Exam Extremities Exam: Normal Inspection. absent: Calf Tenderness, Pedal Edema - Back Exam Back Exam: NORMAL INSPECTION. absent: CVA tenderness (L), CVA tenderness (R), paraspinal tenderness - Neurological Exam Neurological Exam: Alert, Awake, CN II-XII Intact, Normal Gait, Oriented x3 - Psychiatric Exam Psychiatric exam: Normal Affect, Normal Mood - Skin Skin Exam: Dry, Intact, Normal Color Assessment and Plan - Assessment and Plan (Free Text) Assessment: COPD exacerbation Still wheezing, using [place] Dr. Partida, pulm consulted, help appreciated Start Advair RQ12 INH Spirivia 18mcg INH HS Duonebs [facility] SoluMedrol 40mg IVP Q8 Cefrtiaxone 1gram IVPB daily (started 08/05) Doxycline 100mg IVPB Q12 (started 08/05) Patient was sent to ICU on admission and was given BIPAP - ABG showed p02 55 Procalcitonin <0.05 f/u am labs Abnormal EKG Patient was seen by cardiology on last visit and was supposed to follow up outpatient for stress test - pt states he was unable Trop negative x 3 Dr. Black consulted, cardiology, help appreciated - f/u recs Plavix 75 mg PO daily was started by ICU team, patient is not on this medication at home Prophylaxis GI - not indicated Lovenox 40mg SC daily All management per Dr. Eulalia Ragland
[2017-08-06 11:02] LABS: HEMOGLOBIN 12.8 g/dL (12.0-18.0); LYMPH # 0.4 K/uL (1.0-4.3); LYMPH % 2.2 % (20.0-40.0); MEAN CELL VOLUME 91.1 fL (80.0-94.0); MEAN CORPUSCULAR HEMOGLOBIN 30.6 pg (27.0-31.0); MEAN CORPUSCULAR HGB CONC 33.7 g/dL (33.0-37.0); MEAN PLATELET VOLUME 9.8 fL (7.2-11.7); MONO # 0.6 K/uL (0.0-0.8); NEUT # 18.5 K/uL (1.8-7.0); NEUT % 94.8 % (50.0-75.0); PLATELET COUNT 185 K/uL (130-400); RBC 4.19 Mil/uL (4.40-5.90); RED CELL DISTRIBUTION WIDTH 14.2 % (11.5-14.5); WHITE BLOOD COUNT 19.6 K/uL (4.8-10.8)
[2017-08-06 11:26] LABS: ALB/GLOB RATIO 1.2 (1.0-2.1); ALBUMIN 3.8 g/dL (3.5-5.0); ALT/SGPT 21 U/L (21-72); AST/SGOT 33 U/L (17-59); BLOOD UREA NITROGEN 23 mg/dL (9-20); CALCIUM 8.9 mg/dl (8.6-10.4); GFR AFRICAN-AMERICAN > 60; GFR NON-AFRICAN AMERICAN > 60
[2017-08-06 11:44] LABS: LYMPHOCYTE 3 % (20-40); MONOCYTE 1 % (0-10); NEUTROPHIL 96 % (50-75); PLATELET ESTIMATE NORMAL (NORMAL); TOTAL CELLS COUNTED 100
--- NOTE | 2017-08-06 13:08 | CP.PCM.PN ---
Subjective - Date & Time of Evaluation Date of Evaluation: 08/06/17 Time of Evaluation: 08:00 - Subjective Subjective: clinically same Objective - Vital Signs/Intake and Output Vital Signs (last 24 hours): Temp Pulse Resp BP Pulse Ox 98.2 F 79 22 116/71 99 08/06/17 08:29 08/06/17 08:29 08/06/17 11:02 08/06/17 08:29 08/06/17 08:29 Intake and Output: 08/06/17 08/06/17 06:59 18:59 Intake Total 600 Balance 600 - Medications Medications: Current Medications Albuterol Sulfate (Albuterol 0.083% Inhal [place] (2.5 Mg/3 Ml) Ud) 2.5 mg INH RQ2 PRN PRN Reason: Wheezing Last Admin: 08/05/17 04:46 Dose: 2.5 mg Albuterol/Ipratropium (Duoneb 3 Mg/0.5 Mg (3 Ml) Ud) 3 ml INH RQ4 [place] Last Admin: 08/06/17 10:59 Dose: 3 ml Albuterol/Ipratropium (Duoneb 3 Mg/0.5 Mg (3 Ml) Ud) 3 ml INH RQ2 PRN PRN Reason: Wheezing Clopidogrel Bisulfate (Plavix) 75 mg PO DAILY [facility] Last Admin: 08/06/17 09:06 Dose: 75 mg Enoxaparin Sodium (Lovenox) 40 mg SC DAILY [place] Last Admin: 08/06/17 09:06 Dose: 40 mg Doxycycline Hyclate 100 mg/ (Sodium Chloride) 100 mls @ 100 mls/hr IVPB Q12H [place] PRN Reason: Protocol Last Admin: 08/06/17 01:33 Dose: 100 mls/hr Ceftriaxone Sodium (Rocephin Iv 1 Gm Duplex) 50 mls @ 100 mls/hr IVPB Q24H [place] PRN Reason: Protocol Last Admin: 08/06/17 00:55 Dose: 100 mls/hr Methylprednisolone (Solu-Medrol) 40 mg IV Q8 [facility] Fluticasone/Salmeterol (Advair Diskus 250/50) 1 puff INH RQ12 [place] Tiotropium [place] (Spiriva) 18 mcg INH RQ24 [facility] - Labs Labs: 08/06/17 10:53 08/06/17 10:53 - Constitutional Appears: Well - Head Exam Head Exam: ATRAUMATIC, NORMAL INSPECTION, NORMOCEPHALIC - Eye Exam Eye Exam: EOMI, Normal appearance, PERRL Pupil Exam: NORMAL ACCOMODATION, PERRL - ENT Exam ENT Exam: Mucous Membranes Moist, Normal Exam - Neck Exam Neck Exam: Full ROM, Normal Inspection. absent: Lymphadenopathy - Respiratory Exam Respiratory Exam: Decreased Breath Sounds - Cardiovascular Exam Cardiovascular Exam: REGULAR RHYTHM, +S1, +S2 - GI/Abdominal Exam GI & Abdominal Exam: Soft, Diminished Bowel Sounds - Rectal Exam Rectal Exam: Deferred
--- NOTE | 2017-08-06 17:46 | CP.PCM.CON ---
History of Present Illness - History of Present Illness History of Present Illness: Reason for consult: COPD exacerbation HPI: 56 M with PMHx of COPD, CKD presented to the ED 2 days ago with shortness of breath which was not relieved with an inhaler at home. The patient was admitted to the ICU and received BiPAP, he improved and was transported to the med/surg floors. Today, he reports shortness of breath and chest pain related to a non-productive cough that are improved from admission. Although fine today, he worries that he will feel short of breath if he exerts himself. PMHx: Asthma, COPD PSH: None Home meds: singulair QD, combivent QID, ventolin Q4 Allergies: seasonal SH: 45 pack-year hx lets be quit 2-3 years ago, denies alcohol and drug use Assessment and Plan: 1. COPD Exacerbation - Saturating 93- 99% - CXR 08/04: hyperinflation, biapical pleural thickening with upper lobe granulomatous changes, mild venous congestion and bilateral hilar prominence - ABG 08/05: 7.44/ 36/ 55/ 25.2 - High flow O2 - nebulizer treatments - spiriva - singulair - solu-medrol 40mg Q8 - IV ceftriaxone and doxycycline 2. Leukocytosis - CBC 08/06: WBC 19.6/ 94.8% neutrophils - likely secondary to steroids,continue to monitor Past Patient History - Past Medical History & Family History Past Medical History?: Yes - Past Social History Smoking Status: Former Smoker - CARDIAC Hx Cardiac Disorders: No - PULMONARY Hx Chronic Obstructive Pulmonary Disease (COPD): Yes - NEUROLOGICAL Hx Neurological Disorder: No - HEENT Hx HEENT Problems: No - RENAL Hx Chronic Kidney Disease: No - ENDOCRINE/METABOLIC Hx Endocrine Disorders: No - HEMATOLOGICAL/ONCOLOGICAL Hx Blood Disorders: No - INTEGUMENTARY Hx Dermatological Problems: No - MUSCULOSKELETAL/RHEUMATOLOGICAL Hx Falls: No - GASTROINTESTINAL Hx Gastrointestinal Disorders: No - GENITOURINARY/GYNECOLOGICAL Hx Genitourinary Disorders: No - PSYCHIATRIC Hx Substance Use: No - SURGICAL HISTORY Hx Surgeries: Yes Other/Comment: nose surgery - ANESTHESIA Hx Anesthesia: Yes Hx Anesthesia Reactions: No Hx Malignant Hyperthermia: No Has any member of the family had a problem w/ anesthesia?: No Meds Allergies/Adverse Reactions: Allergies Allergy/AdvReac Type Severity Reaction Status Date / Time HAYFEVER Allergy Uncoded 12/09/16 05:03 - Medications Medications: Current Medications Albuterol Sulfate (Albuterol 0.083% Inhal [place] (2.5 Mg/3 Ml) Ud) 2.5 mg INH RQ2 PRN PRN Reason: Wheezing Last Admin: 08/05/17 04:46 Dose: 2.5 mg Albuterol/Ipratropium (Duoneb 3 Mg/0.5 Mg (3 Ml) Ud) 3 ml INH RQ4 [place] Last Admin: 08/06/17 15:55 Dose: 3 ml Albuterol/Ipratropium (Duoneb 3 Mg/0.5 Mg (3 Ml) Ud) 3 ml INH RQ2 PRN PRN Reason: Wheezing Clopidogrel Bisulfate (Plavix) 75 mg PO DAILY [facility] Last Admin: 08/06/17 09:06 Dose: 75 mg Enoxaparin Sodium (Lovenox) 40 mg SC DAILY [facility] Last Admin: 08/06/17 09:06 Dose: 40 mg Doxycycline Hyclate 100 mg/ (Sodium Chloride) 100 mls @ 100 mls/hr IVPB Q12H [place] PRN Reason: Protocol Last Admin: 08/06/17 14:00 Dose: 100 mls/hr Ceftriaxone Sodium (Rocephin Iv 1 Gm Duplex) 50 mls @ 100 mls/hr IVPB Q24H [place] PRN Reason: Protocol Last Admin: 08/06/17 00:55 Dose: 100 mls/hr Methylprednisolone (Solu-Medrol) 40 mg IV Q8 [facility] Last Admin: 08/06/17 13:59 Dose: 40 mg Fluticasone/Salmeterol (Advair Diskus 250/50) 1 puff INH RQ12 [place] Tiotropium [place] (Spiriva) 18 mcg INH RQ24 [place] Results - Vital Signs Recent Vital Signs: Last Vital Signs Temp 97.4 F L 08/06/17 15:00 Pulse 88 08/06/17 15:00 Resp 20 08/06/17 15:49 BP 123/69 08/06/17 15:00 Pulse Ox 98 08/06/17 15:00 - Labs Result Diagrams: 08/06/17 10:53 08/06/17 10:53 Labs: Laboratory Results - last 24 hr 08/06/17 08/06/17 10:53 10:53 WBC 19.6 H RBC 4.19 L Hgb 12.8 Hct 38.1 MCV 91.1 MCH 30.6 MCHC 33.7 RDW 14.2 Plt Count 185 MPV 9.8 Neut % (Auto) 94.8 H Lymph % (Auto) 2.2 L [place] % (Auto) 3.0 Eos % (Auto) 0.0 Baso % (Auto) 0.0 Neut # (Auto) 18.5 H Lymph # (Auto) 0.4 L [place] # (Auto) 0.6 Eos # (Auto) 0.0 Baso # (Auto) 0.0 Neutrophils % (Manual) 96 H Lymphocytes % (Manual) 3 L Monocytes % (Manual) 1 Platelet Estimate Normal Sodium 142 Potassium 4.7 Chloride 105 Carbon Dioxide 23 Anion Gap 19 BUN 23 H Creatinine 1.1 Est GFR ( Amer) > 60 Est GFR (Non-Af Amer) > 60 Random Glucose 149 H Calcium 8.9 Phosphorus 2.9 Magnesium 2.1 Total Bilirubin 0.4 AST 33 ALT 21 D Alkaline Phosphatase 65 Total Protein 7.0 Albumin 3.8 Globulin 3.2 Albumin/Globulin Ratio 1.2
[2017-08-06] MEDS: Fluticasone-Salmeterol 250-50mcg Diskus INH SCH (20:25)
--- NOTE | 2017-08-06 22:01 | CARD ---
APPROVED REPORT EKG Measurement Heart [id number] [place] 120P [id number] <Conclusion> Sinus tachycardia Prolonged QT Abnormal ECG
[2017-08-07] MEDS: cefTRIAXone IV 1 gm in Dextros 50 ML IVPB SCH (00:45)
[2017-08-07] MEDS: Albuterol-Ipratrop 3 mg / 0.5 (3 ml) UD INH SCH ×7 (01:00→23:39)
--- NOTE | 2017-08-07 01:08 | CON ---
DATE: 08/06/2017. REASON FOR CONSULTATION: Shortness of breath as well as sinus tachycardia. HISTORY OF PRESENT ILLNESS: The patient is 56-year-old male with a history of chronic obstructive lung disease, a former heavy smoker, who quit 2 years ago, not on nasal O2 at home, but he uses nebulizer . He presented because of shortness of breath that did not respond to his inhaler treatment. The patient has retrosternal chest pain and is unaware of any chronic cardiac history. The patient is followed by Dr. An, who is a yeast stacker and index editor at [facility]. REVIEW OF SYSTEMS: The patient denies any fever or chills. Denies any productive cough at this time. Denies any . MEDICATIONS: Advair 1 puff inhalation every 12 hours, albuterol inhaler, Lovenox 40 mg subcutaneous once a day, Plavix 75 mg once a day, Rocephin 1 gm intravenously every 8 hours and Spiriva 18 mcg inhalation daily. PHYSICAL EXAMINATION: GENERAL: The patient is a middle aged male, who does not appear to be in acute distress. VITAL SIGNS: Blood pressure 116/71, heart rate 79, temperature 98.2 and respirations 20. HEENT: Normocephalic. CHEST: Diminished air entry bilaterally with minimal rhonchi. HEART: S1 and S2 regular and distant. ABDOMEN: Soft. EXTREMITIES: No edema. LABORATORY DATA: EKG on admission revealed sinus tachycardia at the rate of 119, cannot rule out inferior infract. Repeat EKG revealed sinus cardia at the rate of 135. Echocardiography study in November of last year revealed normal ejection fraction, normal right ventricular systolic function, mild mitral insufficiency and mild tricuspid insufficiency. Chest x-ray is consistent with COPD with prominent bronchovascular markings. SMA-7 today is within normal limits, except for glucose 149 and BUN of 23, hemoglobin and hematocrit 12.8 and 38.1, white count of 19.6, platelet count of [id number]. Urine drug screen is negative. ASSESSMENT: 1. Exacerbation of chronic obstructive lung disease. 2. Uncontrolled diabetes mellitus. 3. Rule out underlying pneumonia. RECOMMENDATIONS: Continue current IV Rocephin and IV doxycycline. Continue subcutaneous Lovenox at 40 mg once a day, Plavix 75 mg once a day, Solu-Medrol 40 mg every 8 hours. Kenji Black MD [facility] # [id number]
[2017-08-07] MEDS: MethylPREDNISolone 40 mg Vial IV SCH ×3 (05:14→21:28)
[2017-08-07 06:43] LABS: HEMOGLOBIN 12.1 g/dL (12.0-18.0); LYMPH # 0.4 K/uL (1.0-4.3); LYMPH % 2.7 % (20.0-40.0); MEAN CELL VOLUME 91.3 fL (80.0-94.0); MEAN CORPUSCULAR HEMOGLOBIN 30.7 pg (27.0-31.0); MEAN CORPUSCULAR HGB CONC 33.6 g/dL (33.0-37.0); MEAN PLATELET VOLUME 9.3 fL (7.2-11.7); MONO # 0.5 K/uL (0.0-0.8); MONO % 3.3 % (0.0-10.0); NEUT # 15.3 K/uL (1.8-7.0); PLATELET COUNT 196 K/uL (130-400); RBC 3.95 Mil/uL (4.40-5.90); RED CELL DISTRIBUTION WIDTH 14.3 % (11.5-14.5); WHITE BLOOD COUNT 16.2 K/uL (4.8-10.8)
[2017-08-07 07:02] LABS: ALB/GLOB RATIO 1.2 (1.0-2.1); ALBUMIN 3.4 g/dL (3.5-5.0); ALT/SGPT 25 U/L (21-72); AST/SGOT 27 U/L (17-59); BLOOD UREA NITROGEN 26 mg/dL (9-20); CALCIUM 8.6 mg/dl (8.6-10.4); GFR AFRICAN-AMERICAN > 60; GFR NON-AFRICAN AMERICAN > 60
[2017-08-07] MEDS: Fluticasone-Salmeterol 250-50mcg Diskus INH SCH (07:32)
--- NOTE | 2017-08-07 09:06 | CP.PCM.PN ---
Subjective - Date & Time of Evaluation Date of Evaluation: 08/07/17 Time of Evaluation: 08:00 - Subjective Subjective: PGY 2 medicine progress not for Dr. Eulalia Ragland: Patient was seen and examined at bedside this morning. He still feels short of breath and has some tightness in his chest which is improving. He is still wheezing a lot. He denies all other symptoms. He is eating well. Objective - Vital Signs/Intake and Output Vital Signs (last 24 hours): Temp Pulse Resp BP Pulse Ox 97.6 F 51 L 20 119/66 98 08/07/17 07:00 08/07/17 07:00 08/07/17 07:30 08/07/17 07:00 08/07/17 07:00 Intake and Output: 08/07/17 08/07/17 06:59 18:59 Intake Total 390 Balance 390 - Medications Medications: Current Medications Albuterol Sulfate (Albuterol 0.083% Inhal [place] (2.5 Mg/3 Ml) Ud) 2.5 mg INH RQ2 PRN PRN Reason: Wheezing Last Admin: 08/05/17 04:46 Dose: 2.5 mg Albuterol/Ipratropium (Duoneb 3 Mg/0.5 Mg (3 Ml) Ud) 3 ml INH RQ4 [place] Last Admin: 08/07/17 07:32 Dose: 3 ml Albuterol/Ipratropium (Duoneb 3 Mg/0.5 Mg (3 Ml) Ud) 3 ml INH RQ2 PRN PRN Reason: Wheezing Clopidogrel Bisulfate (Plavix) 75 mg PO DAILY [place] Last Admin: 08/06/17 09:06 Dose: 75 mg Enoxaparin Sodium (Lovenox) 40 mg SC DAILY [place] Last Admin: 08/06/17 09:06 Dose: 40 mg Doxycycline Hyclate 100 mg/ (Sodium Chloride) 100 mls @ 100 mls/hr IVPB Q12H [place] PRN Reason: Protocol Last Admin: 08/07/17 00:46 Dose: 100 mls/hr Ceftriaxone Sodium (Rocephin Iv 1 Gm Duplex) 50 mls @ 100 mls/hr IVPB Q24H [place] PRN Reason: Protocol Last Admin: 08/07/17 00:45 Dose: 100 mls/hr Methylprednisolone (Solu-Medrol) 40 mg IV Q8 [place] Last Admin: 08/07/17 05:14 Dose: 40 mg Fluticasone/Salmeterol (Advair Diskus 250/50) 1 puff INH RQ12 [facility] Last Admin: 08/07/17 07:32 Dose: Not Given Tiotropium [place] (Spiriva) 18 mcg INH RQ24 [facility] - Labs Labs: 08/07/17 06:36 08/07/17 06:36 - Constitutional Appears: Non-toxic, No Acute Distress, Unkempt - Head Exam Head Exam: ATRAUMATIC, NORMAL INSPECTION - Eye Exam Eye Exam: EOMI, PERRL Pupil Exam: NORMAL ACCOMODATION - ENT Exam ENT Exam: Mucous Membranes Moist - Respiratory Exam Respiratory Exam: Decreased Breath Sounds, Wheezes - Cardiovascular Exam Cardiovascular Exam: REGULAR RHYTHM, +S1, +S2 - GI/Abdominal Exam GI & Abdominal Exam: Soft, Normal Bowel Sounds. absent: Distended, Firm, Guarding, Tenderness - Extremities Exam Extremities Exam: Normal Inspection - Back Exam Back Exam: NORMAL INSPECTION - Neurological Exam Neurological Exam: Alert, Awake, CN II-XII Intact, Normal Gait, Oriented x3 Neuro motor strength exam: Left Upper Extremity: 5, Right Upper Extremity: 5, Left Lower Extremity: 5, Right Lower Extremity: 5 - Psychiatric Exam Psychiatric exam: Normal Affect, Normal Mood - Skin Skin Exam: Dry, Intact, Normal Color, Warm Assessment and Plan - Assessment and Plan (Free Text) Assessment: COPD exacerbation Still wheezing, using NC Dr. Partida, pulm consulted, help appreciated f/u Chest CT Start Advair RQ12 INH Spirivia 18mcg INH HS Duonebs [facility] SoluMedrol 40mg IVP Q8 Ceftriaxone 1gram IVPB daily (started 08/05) Doxycline 100mg IVPB Q12 (started 08/05) Patient was sent to ICU on admission and was given BIPAP - ABG showed p02 55 Procalcitonin <0.05 f/u am labs Abnormal EKG Patient was seen by cardiology on last visit and was supposed to follow up outpatient for stress test - pt states he was unable Trop negative x 3 Dr. Black consulted, cardiology, help appreciated -Patient can follow up outpatient for stress test Asa 81 mg PO daily Prophylaxis GI - not indicated Lovenox 40mg SC daily All management per Dr. Eulalia Ragland
[2017-08-07 09:54] LABS: LYMPHOCYTE 1 % (20-40); MONOCYTE 2 % (0-10); NEUTROPHIL 97 % (50-75); PLATELET ESTIMATE NORMAL (NORMAL); TOTAL CELLS COUNTED 100
[2017-08-07] MEDS: Enoxaparin 40 mg Syringe SC SCH (10:02)
--- NOTE | 2017-08-07 15:15 | CP.PCM.PN ---
Subjective - Date & Time of Evaluation Date of Evaluation: 08/07/17 Time of Evaluation: 11:30 - Subjective Subjective: Patient seen and examined seated at bedside resting comfortably. Pt states his breathing is improved compared to yesterday. He still reports mild chest pain related to nonproductive cough. Pt denies fever, chills, general weakness. On physical exam, decreased breath sounds and wheezing predominantly on right upper and middle lobe. Assessment and Plan: 1. COPD Exacerbation - Saturating 93- 99% on NC - CXR 08/04: hyperinflation, biapical pleural thickening with upper lobe granulomatous changes, mild venous congestion and bilateral hilar prominence - ABG 08/05: 7.44/ 36/ 55/ 25.2 - High flow O2, switch to nasal cannula - duonebs [place] - spiriva 18mcg INH HS - advair RQ12 INH - solu-medrol 40mg Q8 - IV ceftriaxone 1 gm QD and doxycycline 100mg Q12 2. Leukocytosis - afebrile - CBC 08/06: WBC 16.2 from 19.6/ 94.0% neutrophils - IV ceftriaxone 1 gm QD and doxycyclin Objective - Vital Signs/Intake and Output Vital Signs (last 24 hours): Temp Pulse Resp BP Pulse Ox 97.6 F 51 L 20 119/66 98 08/07/17 07:00 08/07/17 07:00 08/07/17 13:05 08/07/17 07:00 08/07/17 07:00 Intake and Output: 08/07/17 08/07/17 06:59 18:59 Intake Total 390 Balance 390 - Medications Medications: Current Medications Albuterol Sulfate (Albuterol 0.083% Inhal [place] (2.5 Mg/3 Ml) Ud) 2.5 mg INH RQ2 PRN PRN Reason: Wheezing Last Admin: 08/05/17 04:46 Dose: 2.5 mg Albuterol/Ipratropium (Duoneb 3 Mg/0.5 Mg (3 Ml) Ud) 3 ml INH RQ4 [facility] Last Admin: 08/07/17 13:07 Dose: 3 ml Albuterol/Ipratropium (Duoneb 3 Mg/0.5 Mg (3 Ml) Ud) 3 ml INH RQ2 PRN PRN Reason: Wheezing Clopidogrel Bisulfate (Plavix) 75 mg PO DAILY [facility] Last Admin: 08/07/17 10:02 Dose: 75 mg Enoxaparin Sodium (Lovenox) 40 mg SC DAILY [facility] Last Admin: 08/07/17 10:02 Dose: 40 mg Doxycycline Hyclate 100 mg/ (Sodium Chloride) 100 mls @ 100 mls/hr IVPB Q12H [place] PRN Reason: Protocol Last Admin: 08/07/17 13:33 Dose: 100 mls/hr Ceftriaxone Sodium (Rocephin Iv 1 Gm Duplex) 50 mls @ 100 mls/hr IVPB Q24H [place] PRN Reason: Protocol Last Admin: 08/07/17 00:45 Dose: 100 mls/hr Methylprednisolone (Solu-Medrol) 40 mg IV Q8 [place] Last Admin: 08/07/17 13:32 Dose: 40 mg Fluticasone/Salmeterol (Advair Diskus 250/50) 1 puff INH RQ12 [place] Last Admin: 08/07/17 07:32 Dose: Not Given Tiotropium [place] (Spiriva) 18 mcg INH RQ24 [place] - Labs Labs: 08/07/17 06:36 08/07/17 06:36
--- NOTE | 2017-08-07 17:00 | CP.PCM.PN ---
Subjective - Date & Time of Evaluation Date of Evaluation: 08/07/17 Time of Evaluation: 08:00 - Subjective Subjective: clinically same Objective - Vital Signs/Intake and Output Vital Signs (last 24 hours): Temp Pulse Resp BP Pulse Ox 97.4 F L 64 18 109/64 95 08/07/17 16:00 08/07/17 16:00 08/07/17 16:00 08/07/17 16:00 08/07/17 16:00 Intake and Output: 08/07/17 08/07/17 06:59 18:59 Intake Total 390 500 Balance 390 500 - Medications Medications: Current Medications Albuterol Sulfate (Albuterol 0.083% Inhal [place] (2.5 Mg/3 Ml) Ud) 2.5 mg INH RQ2 PRN PRN Reason: Wheezing Last Admin: 08/05/17 04:46 Dose: 2.5 mg Albuterol/Ipratropium (Duoneb 3 Mg/0.5 Mg (3 Ml) Ud) 3 ml INH RQ4 [place] Last Admin: 08/07/17 13:07 Dose: 3 ml Albuterol/Ipratropium (Duoneb 3 Mg/0.5 Mg (3 Ml) Ud) 3 ml INH RQ2 PRN PRN Reason: Wheezing Clopidogrel Bisulfate (Plavix) 75 mg PO DAILY [facility] Last Admin: 08/07/17 10:02 Dose: 75 mg Enoxaparin Sodium (Lovenox) 40 mg SC DAILY [facility] Last Admin: 08/07/17 10:02 Dose: 40 mg Doxycycline Hyclate 100 mg/ (Sodium Chloride) 100 mls @ 100 mls/hr IVPB Q12H [place] PRN Reason: Protocol Last Admin: 08/07/17 13:33 Dose: 100 mls/hr Ceftriaxone Sodium (Rocephin Iv 1 Gm Duplex) 50 mls @ 100 mls/hr IVPB Q24H [place] PRN Reason: Protocol Last Admin: 08/07/17 00:45 Dose: 100 mls/hr Methylprednisolone (Solu-Medrol) 40 mg IV Q8 [facility] Last Admin: 08/07/17 13:32 Dose: 40 mg Fluticasone/Salmeterol (Advair Diskus 250/50) 1 puff INH RQ12 [place] Last Admin: 08/07/17 07:32 Dose: Not Given Tiotropium [place] (Spiriva) 18 mcg INH RQ24 [facility] - Labs Labs: 08/07/17 06:36 08/07/17 06:36 - Constitutional Appears: Well - Head Exam Head Exam: ATRAUMATIC, NORMAL INSPECTION, NORMOCEPHALIC - Eye Exam Eye Exam: EOMI, Normal appearance, PERRL Pupil Exam: NORMAL ACCOMODATION, PERRL - ENT Exam ENT Exam: Mucous Membranes Moist, Normal Exam - Neck Exam Neck Exam: Full ROM, Normal Inspection. absent: Lymphadenopathy - Respiratory Exam Respiratory Exam: Decreased Breath Sounds - Cardiovascular Exam Cardiovascular Exam: REGULAR RHYTHM, +S1, +S2 - GI/Abdominal Exam GI & Abdominal Exam: Soft, Diminished Bowel Sounds - Rectal Exam Rectal Exam: Deferred
--- NOTE | 2017-08-07 20:52 | CT ---
EXAM: CT Chest Without Intravenous Contrast EXAM DATE/TIME: Exam ordered 08/07/2017 10:46 AM CLINICAL HISTORY: 56 years old, male; Signs and symptoms; Shortness of breath and wheezing; Additional info: Wheezing not improving HX copd TECHNIQUE: Axial computed tomography images of the chest without intravenous contrast. All CT scans at this facility use one or more dose reduction techniques, viz.: automated exposure control; ma/kV adjustment per patient size (including targeted exams where dose is matched to indication; i.e. head); or iterative reconstruction technique. Coronal and sagittal reformatted images were created and reviewed. COMPARISON: CR - CHEST TWO VIEWS (PA/LAT) 2015-08-13 07:50 FINDINGS: Lungs: Course linear opacity in the posterior basal segment right lower lobe suggest discoid atelectasis or scar. There is mild bronchial wall thickening noted in the lower lung harden bilaterally. Mild centrilobular type emphysema scattered throughout both lungs. Coronary artery calcification is present. Pleural space: Unremarkable. No pneumothorax. No significant effusion. Heart: See above. Bones/joints: Degenerative changes are noted of the thoracolumbar spine. An area of sclerosis is noted in the lateral aspect of the right seventh rib No acute fracture. No dislocation. Soft tissues: Unremarkable. Vasculature: Unremarkable. No thoracic aortic aneurysm. Lymph nodes: Unremarkable. No enlarged lymph nodes. Stomach and bowel: There is a small hiatal hernia. A moderate amount stool is seen throughout the colon. IMPRESSION: 1. Bronchial wall thickening of the mid and lower lung harden consistent with bronchitis. 2. Mild centrilobular type emphysema. No abnormalities noted at the lung apices to suggest granulomatous infection. 3. Moderate amount of stool seen throughout the colon. 4. 9 mm area sclerosis noted in the lateral aspect of the right seventh rib. This could represent a benign bone island. Other processes including osteoblastic metastatic disease are not excluded.
--- NOTE | 2017-08-07 22:56 | PN ---
DATE: 08/07/2017. SUBJECTIVE: The patient is still experiencing shortness of breath and wheezing. PHYSICAL EXAMINATION: VITAL SIGNS: Blood pressure 109/64, heart rate 64, temperature 97.4, respirations 18. HEENT: Normocephalic. CHEST: Diffuse bilateral expiratory wheezing. HEART: S1 and S2 regular. EXTREMITIES: No edema. LABORATORY DATA: Hemoglobin and hematocrit 12.1 and 36.1, white count 16.2, platelet count 196,000. SMA-7 today is within normal limits except for glucose of 123 and BUN of 26. ASSESSMENT: 1. Exacerbation of chronic obstructive lung disease. 2. Uncontrolled diabetes mellitus. 3. Sinus tachycardia with physiologic response to the patient's shortness of breath and bronchospasm. RECOMMENDATIONS: Continue current IV doxycycline. Continue prophylactic subcutaneous Lovenox. Continue albuterol inhaler, continue IV Rocephin, continue IV Solu-Medrol. The patient can undergo stress test as an outpatient after complete stabilization of his pulmonary status. Kenji Black MD
[2017-08-08] MEDS: cefTRIAXone IV 1 gm in Dextros 50 ML IVPB SCH (01:53)
[2017-08-08] MEDS: Albuterol-Ipratrop 3 mg / 0.5 (3 ml) UD INH SCH ×5 (03:26→19:28)
[2017-08-08] MEDS: MethylPREDNISolone 40 mg Vial IV SCH ×3 (05:55→21:38)
[2017-08-08] MEDS: Fluticasone-Salmeterol 250-50mcg Diskus INH SCH ×2 (07:15→19:28)
--- NOTE | 2017-08-08 07:26 | CP.PCM.PN ---
Subjective - Date & Time of Evaluation Date of Evaluation: 08/08/17 Time of Evaluation: 07:00 - Subjective Subjective: PGY 2 medicine progress not for Dr. Eulalia Ragland: Patient was seen and examined at bedside this morning. He still feels short of breath and has some tightness in his chest which is improving. He states he feels a lot better today. He denies all other symptoms. He is eating well. Patient was requesting a script for a nebulizer machine, Will give on discharge. Objective - Vital Signs/Intake and Output Vital Signs (last 24 hours): Temp Pulse Resp BP Pulse Ox 98.1 F 54 L 20 122/68 100 08/07/17 23:00 08/07/17 23:00 08/08/17 05:12 08/07/17 23:00 08/07/17 23:00 Intake and Output: 08/08/17 08/08/17 06:59 18:59 Intake Total 800 Balance 800 - Medications Medications: Current Medications Albuterol Sulfate (Albuterol 0.083% Inhal [place] (2.5 Mg/3 Ml) Ud) 2.5 mg INH RQ2 PRN PRN Reason: Wheezing Last Admin: 08/05/17 04:46 Dose: 2.5 mg Albuterol/Ipratropium (Duoneb 3 Mg/0.5 Mg (3 Ml) Ud) 3 ml INH RQ4 [facility] Last Admin: 08/08/17 03:26 Dose: 3 ml Albuterol/Ipratropium (Duoneb 3 Mg/0.5 Mg (3 Ml) Ud) 3 ml INH RQ2 PRN PRN Reason: Wheezing Clopidogrel Bisulfate (Plavix) 75 mg PO DAILY [facility] Last Admin: 08/07/17 10:02 Dose: 75 mg Enoxaparin Sodium (Lovenox) 40 mg SC DAILY [facility] Last Admin: 08/07/17 10:02 Dose: 40 mg Methylprednisolone (Solu-Medrol) 40 mg IV Q12 [facility] Fluticasone/Salmeterol (Advair Diskus 250/50) 1 puff INH RQ12 [facility] Last Admin: 08/07/17 07:32 Dose: Not Given Tiotropium [place] (Spiriva) 18 mcg INH RQ24 [facility] - Labs Labs: 08/07/17 06:36 08/07/17 06:36 - Constitutional Appears: Non-toxic, No Acute Distress - Head Exam Head Exam: NORMAL INSPECTION - Eye Exam Eye Exam: EOMI Pupil Exam: NORMAL ACCOMODATION - Respiratory Exam Respiratory Exam: Decreased Breath Sounds, Wheezes, NORMAL BREATHING PATTERN. absent: Accessory Muscle Use, Respiratory Distress Additional comments: wheezing greatly improving, only minimal today - Cardiovascular Exam Cardiovascular Exam: REGULAR RHYTHM, +S1, +S2 - GI/Abdominal Exam GI & Abdominal Exam: Soft, Normal Bowel Sounds. absent: Distended, Firm, Guarding, Tenderness - Extremities Exam Extremities Exam: absent: Calf Tenderness, Pedal Edema - Back Exam Back Exam: NORMAL INSPECTION. absent: CVA tenderness (L), CVA tenderness (R), paraspinal tenderness - Neurological Exam Neurological Exam: Alert, Awake, Normal Gait, Oriented x3 - Psychiatric Exam Psychiatric exam: Normal Affect, Normal Mood - Skin Skin Exam: Dry. absent: Cyanosis Assessment and Plan - Assessment and Plan (Free Text) Assessment: COPD exacerbation Still wheezing, using NC Dr. Partida, pulm consulted, help appreciated Chest CT - emphysema, bronchitis Start Advair RQ12 INH Spirivia 18mcg INH HS Duonebs [facility] SoluMedrol 40mg IVP Q12 - start to taper today Ceftriaxone 1gram IVPB daily (started 08/05) Doxycline 100mg IVPB Q12 (started 08/05) Patient was sent to ICU on admission and was given BIPAP - ABG showed p02 55 Procalcitonin <0.05 f/u am labs Incidental bone lesion finding on CT f/u serum immunofixation, kappa/lambda lights chains, protein electrophoresis, PSA please see full report for details: 9 mm area of sclerosis noted in the lateral aspect of the right seventh rib. could represent benign bone island. other processes not excluded Abnormal EKG Patient was seen by cardiology on last visit and was supposed to follow up outpatient for stress test - pt states he was unable Trop negative x 3 Dr. Black consulted, cardiology, help appreciated -Patient can follow up outpatient for stress test Asa 81 mg PO daily Prophylaxis GI - not indicated Lovenox 40mg SC daily Dispo - likely DC tomorrow All management per Dr. Eulalia Ragland
[2017-08-08 08:38] LABS: BASO % 0.1 % (0.0-2.0); HEMOGLOBIN 13.3 g/dL (12.0-18.0); LYMPH # 0.4 K/uL (1.0-4.3); MEAN CELL VOLUME 91.2 fL (80.0-94.0); MEAN CORPUSCULAR HEMOGLOBIN 31.4 pg (27.0-31.0); MEAN CORPUSCULAR HGB CONC 34.4 g/dL (33.0-37.0); MEAN PLATELET VOLUME 9.4 fL (7.2-11.7); MONO # 0.5 K/uL (0.0-0.8); MONO % 3.3 % (0.0-10.0); NEUT % 93.6 % (50.0-75.0); NRBC % 0.1 % (0.0-2.0); PLATELET COUNT 184 K/uL (130-400); RBC 4.23 Mil/uL (4.40-5.90); WHITE BLOOD COUNT 13.9 K/uL (4.8-10.8)
[2017-08-08 08:43] LABS: ALB/GLOB RATIO 1.2 (1.0-2.1); ALBUMIN 3.8 g/dL (3.5-5.0); ALT/SGPT 25 U/L (21-72); AST/SGOT 27 U/L (17-59); BLOOD UREA NITROGEN 24 mg/dL (9-20); GFR AFRICAN-AMERICAN > 60; GFR NON-AFRICAN AMERICAN > 60
[2017-08-08] MEDS: Enoxaparin 40 mg Syringe SC SCH (09:40)
[2017-08-08 10:50] LABS: BANDS 3 % (0-2); LYMPHOCYTE 4 % (20-40); MONOCYTE 1 % (0-10); NEUTROPHIL 92 % (50-75); PLATELET ESTIMATE NORMAL (NORMAL); TOTAL CELLS COUNTED 100
[2017-08-08 10:51] LABS: OVALOCYTES SLIGHT
[2017-08-08] MEDS: Tiotropium 18 mcg Cap For Inhalation INH SCH (13:15)
[2017-08-08] MEDS ORDERED: Acetylcysteine 20% Inhal Soln (4ml) INH SCH (16:00)
--- NOTE | 2017-08-08 16:24 | PN ---
DATE: 08/08/2017 SUBJECTIVE: The patient is still experiencing shortness of breath. No retrosternal chest pain. PHYSICAL EXAMINATION: VITAL SIGNS: Blood pressure 131/79, heart rate 58, temperature 97.8, respirations 20. HEENT: Normocephalic. CHEST: Diminished air entry bilaterally. HEART: S1 and S2 regular and distant. EXTREMITIES: No edema. LABORATORY DATA: Today's hemoglobin and hematocrit are within normal limits. White count 15.9, platelet count 184,000. Today's SMA-7 is within normal limits except for glucose of 115, and BUN of 24. Chest CT scan revealed bronchial wall thickening of the mid consistent with bronchitis. Mild centrilobular-type emphysema. Moderate amount of stool seen throughout the colon. ASSESSMENT: 1. Exacerbation of chronic obstructive lung disease. 2. Mild mitral insufficiency. 3. Consider underlying bronchitis. RECOMMENDATIONS: Continue current albuterol inhaler. Continue Lovenox 40 mg subcutaneous once a day, Plavix 75 mg once a day, Solu-Medrol 40 mg intravenously twice a day, Spiriva 18 mcg inhalation daily. Kenji Black MD
--- NOTE | 2017-08-08 16:42 | CP.PCM.PN ---
Subjective - Date & Time of Evaluation Date of Evaluation: 08/08/17 Time of Evaluation: 08:20 - Subjective Subjective: clinically same Objective - Vital Signs/Intake and Output Vital Signs (last 24 hours): Temp Pulse Resp BP Pulse Ox 97.2 F L 65 20 112/72 96 08/08/17 15:51 08/08/17 15:51 08/08/17 15:51 08/08/17 15:51 08/08/17 15:51 Intake and Output: 08/08/17 08/08/17 06:59 18:59 Intake Total 800 480 Balance 800 480 - Medications Medications: Current Medications Albuterol Sulfate (Albuterol 0.083% Inhal [place] (2.5 Mg/3 Ml) Ud) 2.5 mg INH RQ2 PRN PRN Reason: Wheezing Last Admin: 08/05/17 04:46 Dose: 2.5 mg Albuterol/Ipratropium (Duoneb 3 Mg/0.5 Mg (3 Ml) Ud) 3 ml INH RQ4 [facility] Last Admin: 08/08/17 15:44 Dose: 3 ml Albuterol/Ipratropium (Duoneb 3 Mg/0.5 Mg (3 Ml) Ud) 3 ml INH RQ2 PRN PRN Reason: Wheezing Clopidogrel Bisulfate (Plavix) 75 mg PO DAILY [facility] Last Admin: 08/08/17 09:40 Dose: 75 mg Enoxaparin Sodium (Lovenox) 40 mg SC DAILY [facility] Last Admin: 08/08/17 09:40 Dose: 40 mg Methylprednisolone (Solu-Medrol) 40 mg IV Q12 [facility] Last Admin: 08/08/17 09:40 Dose: 40 mg Fluticasone/Salmeterol (Advair Diskus 250/50) 1 puff INH RQ12 [facility] Last Admin: 08/08/17 07:15 Dose: 1 puff Tiotropium [place] (Spiriva) 18 mcg INH RQ24 [facility] Last Admin: 08/08/17 13:15 Dose: 18 mcg - Labs Labs: 08/08/17 08:23 08/08/17 08:23 - Constitutional Appears: Well - Head Exam Head Exam: ATRAUMATIC, NORMAL INSPECTION, NORMOCEPHALIC - Eye Exam Eye Exam: EOMI, Normal appearance, PERRL Pupil Exam: NORMAL ACCOMODATION, PERRL - ENT Exam ENT Exam: Mucous Membranes Moist, Normal Exam - Neck Exam Neck Exam: Full ROM, Normal Inspection. absent: Lymphadenopathy - Respiratory Exam Respiratory Exam: Decreased Breath Sounds - Cardiovascular Exam Cardiovascular Exam: REGULAR RHYTHM, +S1, +S2 - GI/Abdominal Exam GI & Abdominal Exam: Soft, Diminished Bowel Sounds - Rectal Exam Rectal Exam: Deferred
[2017-08-09] MEDS: Albuterol-Ipratrop 3 mg / 0.5 (3 ml) UD INH SCH ×6 (01:46→20:02)
[2017-08-09] MEDS: Fluticasone-Salmeterol 250-50mcg Diskus INH SCH ×2 (07:24→20:02)
[2017-08-09] MEDS: Tiotropium 18 mcg Cap For Inhalation INH SCH (07:30)
[2017-08-09 08:09] LABS: HEMOGLOBIN 13.7 g/dL (12.0-18.0); LYMPH # 0.5 K/uL (1.0-4.3); LYMPH % 4.2 % (20.0-40.0); MEAN CELL VOLUME 89.6 fL (80.0-94.0); MEAN CORPUSCULAR HEMOGLOBIN 30.7 pg (27.0-31.0); MEAN CORPUSCULAR HGB CONC 34.3 g/dL (33.0-37.0); MEAN PLATELET VOLUME 9.4 fL (7.2-11.7); MONO # 0.8 K/uL (0.0-0.8); MONO % 7.1 % (0.0-10.0); NEUT # 10.5 K/uL (1.8-7.0); NEUT % 88.7 % (50.0-75.0); PLATELET COUNT 190 K/uL (130-400); RBC 4.47 Mil/uL (4.40-5.90); RED CELL DISTRIBUTION WIDTH 13.8 % (11.5-14.5); WHITE BLOOD COUNT 11.8 K/uL (4.8-10.8)
[2017-08-09 08:31] LABS: ALB/GLOB RATIO 1.2 (1.0-2.1); ALBUMIN 3.9 g/dL (3.5-5.0); ALT/SGPT 33 U/L (21-72); AST/SGOT 35 U/L (17-59); BLOOD UREA NITROGEN 22 mg/dL (9-20); CALCIUM 9.1 mg/dl (8.6-10.4); GFR AFRICAN-AMERICAN > 60; GFR NON-AFRICAN AMERICAN > 60
[2017-08-09 09:54] LABS: BANDS 2 % (0-2); LYMPHOCYTE 4 % (20-40); METAMYELOCYTE 1 % (0-0); MONOCYTE 8 % (0-10); NEUTROPHIL 85 % (50-75); PLATELET ESTIMATE NORMAL (NORMAL); TOTAL CELLS COUNTED 100
[2017-08-09] MEDS: Enoxaparin 40 mg Syringe SC SCH (10:32)
[2017-08-09] MEDS: MethylPREDNISolone 40 mg Vial IV SCH (10:32)
--- NOTE | 2017-08-09 12:26 | CP.PCM.PN ---
Subjective - Date & Time of Evaluation Date of Evaluation: 08/09/17 Time of Evaluation: 12:26 - Subjective Subjective: PGy2 progress note for Dr. Ragland Pt seen and examined at bedside. No acute events overnight. Pt is sitting comfortably currently on NC. Denies having any CP, SOB, abd pain, N/V/D/C, F/C. Pt tolerating PO intake. Objective - Vital Signs/Intake and Output Vital Signs (last 24 hours): Temp Pulse Resp BP Pulse Ox 97.5 F L 60 20 130/74 97 08/09/17 07:50 08/09/17 07:50 08/09/17 07:50 08/09/17 07:50 08/09/17 07:50 - Medications Medications: Current Medications Albuterol Sulfate (Albuterol 0.083% Inhal [place] (2.5 Mg/3 Ml) Ud) 2.5 mg INH RQ2 PRN PRN Reason: Wheezing Last Admin: 08/05/17 04:46 Dose: 2.5 mg Albuterol/Ipratropium (Duoneb 3 Mg/0.5 Mg (3 Ml) Ud) 3 ml INH RQ4 [facility] Last Admin: 08/09/17 07:25 Dose: 3 ml Albuterol/Ipratropium (Duoneb 3 Mg/0.5 Mg (3 Ml) Ud) 3 ml INH RQ2 PRN PRN Reason: Wheezing Clopidogrel Bisulfate (Plavix) 75 mg PO DAILY [facility] Last Admin: 08/09/17 10:35 Dose: 75 mg Enoxaparin Sodium (Lovenox) 40 mg SC DAILY [facility] Last Admin: 08/09/17 10:32 Dose: Not Given Methylprednisolone (Solu-Medrol) 40 mg IV DAILY [facility] Fluticasone/Salmeterol (Advair Diskus 250/50) 1 puff INH RQ12 [facility] Last Admin: 08/09/17 07:24 Dose: 1 puff Tiotropium [place] (Spiriva) 18 mcg INH RQ24 [facility] Last Admin: 08/09/17 07:30 Dose: 18 mcg - Labs Labs: 08/09/17 08:02 08/09/17 08:02 - Constitutional Appears: Non-toxic, No Acute Distress - Head Exam Head Exam: ATRAUMATIC - ENT Exam ENT Exam: Mucous Membranes Moist - Respiratory Exam Respiratory Exam: Wheezes. absent: Accessory Muscle Use, Rales, Rhonchi, Respiratory Distress - Cardiovascular Exam Cardiovascular Exam: REGULAR RHYTHM, +S1, +S2. absent: Gallop, Rubs, Murmur - GI/Abdominal Exam GI & Abdominal Exam: Soft, Normal Bowel Sounds. absent: Distended, Firm, Guarding, Rigid, Tenderness, Organomegaly - Extremities Exam Extremities Exam: absent: Pedal Edema, Tenderness - Neurological Exam Neurological Exam: Alert, Awake, Oriented x3 - Psychiatric Exam Psychiatric exam: Normal Affect, Normal Mood - Skin Skin Exam: Dry, Intact, Normal Color, Warm Assessment and Plan - Assessment and Plan (Free Text) Assessment: COPD exacerbation Wheezing improved, currently on NC Dr. Partida, pulm consulted, help appreciated Chest CT - emphysema, bronchitis Start Advair RQ12 INH Spirivia 18mcg INH HS Duonebs [place] SoluMedrol 40mg daily Physical therapy evaluated pt yesterday. Pt able to ambulate 300 ft with NC 6 L sating at 95%. patient will require home O2 Incidental bone lesion finding on CT f/u serum immunofixation, kappa/lambda lights chains, protein electrophoresis, PSA please see full report for details: 9 mm area of sclerosis noted in the lateral aspect of the right seventh rib. could represent benign bone island. other processes not excluded Abnormal EKG Patient was seen by cardiology on last visit and was supposed to follow up outpatient for stress test - pt states he was unable Trop negative x 3 Dr. Black consulted, cardiology, help appreciated -Patient can follow up outpatient for stress test Asa 81 mg PO daily Prophylaxis GI - not indicated Lovenox 40mg SC daily Dispo - likely DC tomorrow All management per Dr. Eulalia Ragland
--- NOTE | 2017-08-09 13:00 | CP.PCM.PN ---
Subjective - Date & Time of Evaluation Date of Evaluation: 08/09/17 Time of Evaluation: 09:30 - Subjective Subjective: Patient seen and examined at bedside. Patient resting comfortably seated on the bed on 3L NC, breathing without issues. The patient feels much better and is ready to go home. Clear from a pulmonary standpoint for discharge, will follow- up outpatient. Assessment and Plan: 1. COPD Exacerbation - Saturating 95- 100% on vapotherm - CXR 08/04: hyperinflation, biapical pleural thickening with upper lobe granulomatous changes, mild venous congestion and bilateral hilar prominence - CT Chest 08/07: bronchial wall thickening of the mid and lower lung harden consistent with bronchitis, mild centrilobular emphysema - ABG 08/05: 7.44/ 36/ 55/ 25.2 - nebulizer treatments - spiriva 18mcg INH HS - advair INH RQ12 - solu-medrol switch to PO prednisone - ABG at rest on RA and with exerion - Home O2 2. Leukocytosis - afebrile - CBC 08/08: WBC 13.9 from 16.2, 93.6% neutrophils Objective - Vital Signs/Intake and Output Vital Signs (last 24 hours): Temp Pulse Resp BP Pulse Ox 97.5 F L 60 20 130/74 97 08/09/17 07:50 08/09/17 07:50 08/09/17 07:50 08/09/17 07:50 08/09/17 07:50 - Medications Medications: Current Medications Albuterol Sulfate (Albuterol 0.083% Inhal [place] (2.5 Mg/3 Ml) Ud) 2.5 mg INH RQ2 PRN PRN Reason: Wheezing Last Admin: 08/05/17 04:46 Dose: 2.5 mg Albuterol/Ipratropium (Duoneb 3 Mg/0.5 Mg (3 Ml) Ud) 3 ml INH RQ4 [facility] Last Admin: 08/09/17 07:25 Dose: 3 ml Albuterol/Ipratropium (Duoneb 3 Mg/0.5 Mg (3 Ml) Ud) 3 ml INH RQ2 PRN PRN Reason: Wheezing Clopidogrel Bisulfate (Plavix) 75 mg PO DAILY [facility] Last Admin: 08/09/17 10:35 Dose: 75 mg Enoxaparin Sodium (Lovenox) 40 mg SC DAILY [facility] Last Admin: 08/09/17 10:32 Dose: Not Given Methylprednisolone (Solu-Medrol) 40 mg IV DAILY [facility] Fluticasone/Salmeterol (Advair Diskus 250/50) 1 puff INH RQ12 [facility] Last Admin: 08/09/17 07:24 Dose: 1 puff Tiotropium [place] (Spiriva) 18 mcg INH RQ24 [facility] Last Admin: 08/09/17 07:30 Dose: 18 mcg - Labs Labs: 08/09/17 08:02 08/09/17 08:02
--- NOTE | 2017-08-09 17:34 | CP.PCM.PN ---
Subjective - Date & Time of Evaluation Date of Evaluation: 08/09/17 Time of Evaluation: 08:00 - Subjective Subjective: clinically same Objective - Vital Signs/Intake and Output Vital Signs (last 24 hours): Temp Pulse Resp BP Pulse Ox 98.0 F 70 20 135/74 97 08/09/17 15:00 08/09/17 15:00 08/09/17 15:00 08/09/17 15:00 08/09/17 15:00 Intake and Output: 08/09/17 08/09/17 06:59 18:59 Intake Total 400 Balance 400 - Medications Medications: Current Medications Albuterol Sulfate (Albuterol 0.083% Inhal [place] (2.5 Mg/3 Ml) Ud) 2.5 mg INH RQ2 PRN PRN Reason: Wheezing Last Admin: 08/05/17 04:46 Dose: 2.5 mg Albuterol/Ipratropium (Duoneb 3 Mg/0.5 Mg (3 Ml) Ud) 3 ml INH RQ4 [facility] Last Admin: 08/09/17 16:43 Dose: 3 ml Albuterol/Ipratropium (Duoneb 3 Mg/0.5 Mg (3 Ml) Ud) 3 ml INH RQ2 PRN PRN Reason: Wheezing Clopidogrel Bisulfate (Plavix) 75 mg PO DAILY [facility] Last Admin: 08/09/17 10:35 Dose: 75 mg Enoxaparin Sodium (Lovenox) 40 mg SC DAILY [facility] Last Admin: 08/09/17 10:32 Dose: Not Given Methylprednisolone (Solu-Medrol) 40 mg IV DAILY [facility] Fluticasone/Salmeterol (Advair Diskus 250/50) 1 puff INH RQ12 [facility] Last Admin: 08/09/17 07:24 Dose: 1 puff Tiotropium [place] (Spiriva) 18 mcg INH RQ24 [facility] Last Admin: 08/09/17 07:30 Dose: 18 mcg - Labs Labs: 08/09/17 08:02 08/09/17 08:02 - Constitutional Appears: Well - Head Exam Head Exam: ATRAUMATIC, NORMAL INSPECTION, NORMOCEPHALIC - Eye Exam Eye Exam: EOMI, Normal appearance, PERRL Pupil Exam: NORMAL ACCOMODATION, PERRL - ENT Exam ENT Exam: Mucous Membranes Moist, Normal Exam - Neck Exam Neck Exam: Full ROM, Normal Inspection. absent: Lymphadenopathy - Respiratory Exam Respiratory Exam: Decreased Breath Sounds - Cardiovascular Exam Cardiovascular Exam: REGULAR RHYTHM, +S1, +S2 - GI/Abdominal Exam GI & Abdominal Exam: Soft, Diminished Bowel Sounds - Rectal Exam Rectal Exam: Deferred
--- NOTE | 2017-08-09 20:29 | PN ---
DATE: 08/09/2017 SUBJECTIVE: The patient is still short of breath but he is not wheezing. PHYSICAL EXAMINATION: VITAL SIGNS: Blood pressure 130/74, heart rate 60, temperature 97.5, respirations 20. HEENT: Normocephalic. CHEST: Bilateral rhonchi. HEART: S1 and S2 regular. EXTREMITIES: No edema. LABORATORY DATA: Hemoglobin and hematocrit 15.7 and 40, white count 11.8, platelet count 190,000. SMA-7 within normal limits except for BUN of 22. ASSESSMENT: 1. Exacerbation of chronic obstructive lung disease. 2. Acute bronchitis. 3. Mild mitral insufficiency. RECOMMENDATIONS: Continue current medications including Advair, albuterol, preventive prophylaxis, subcutaneous Lovenox, Plavix, Solu Medrol and Spiriva. Kenji Black MD
[2017-08-10 00:27] VITALS: RESP 20
[2017-08-10] MEDS: Albuterol-Ipratrop 3 mg / 0.5 (3 ml) UD INH SCH ×3 (02:03→08:34)
[2017-08-10 06:23] LABS: BASO % 0.1 % (0.0-2.0); EOS % 0.1 % (0.0-4.0); HEMOGLOBIN 13.3 g/dL (12.0-18.0); LYMPH # 1.3 K/uL (1.0-4.3); MEAN CORPUSCULAR HGB CONC 34.5 g/dL (33.0-37.0); MONO # 1.1 K/uL (0.0-0.8); MONO % 10.5 % (0.0-10.0); NEUT # 8.3 K/uL (1.8-7.0); NEUT % 77.3 % (50.0-75.0); NRBC % 0.1 % (0.0-2.0); RBC 4.3 Mil/uL (4.40-5.90); RED CELL DISTRIBUTION WIDTH 13.8 % (11.5-14.5); WHITE BLOOD COUNT 10.7 K/uL (4.8-10.8)
[2017-08-10 07:56] LABS: ALB/GLOB RATIO 1.2 (1.0-2.1); ALBUMIN 3.4 g/dL (3.5-5.0); ALT/SGPT 38 U/L (21-72); AST/SGOT 26 U/L (17-59); BLOOD UREA NITROGEN 26 mg/dL (9-20); CALCIUM 8.5 mg/dl (8.6-10.4); GFR AFRICAN-AMERICAN > 60; GFR NON-AFRICAN AMERICAN > 60
[2017-08-10] MEDS: Tiotropium 18 mcg Cap For Inhalation INH SCH (08:33)
[2017-08-10] MEDS: Fluticasone-Salmeterol 250-50mcg Diskus INH SCH ×2 (08:33→19:18)
[2017-08-10] MEDS: Enoxaparin 40 mg Syringe SC SCH (09:21)
[2017-08-10] MEDS: MethylPREDNISolone 40 mg Vial IV SCH (09:31)
--- NOTE | 2017-08-10 15:00 | PN ---
DATE: SUBJECTIVE: The patient denies chest pain. Shortness of breath is improved. He is comfortable without nasal O2. PHYSICAL EXAMINATION: VITAL SIGNS: Blood pressure 139/77, heart rate 65, temperature 97.7, respirations 20. HEENT: Normocephalic. CHEST: Bilateral rhonchi. HEART: S1 and S2 regular. EXTREMITIES: No edema. LABORATORY DATA: Today's hemoglobin and hematocrit, white count, and platelet count are within normal limit. SMA-7 is within normal limits except for carbon dioxide of 32 and BUN of 26. ASSESSMENT: 1. Exacerbation of chronic obstructive lung disease. 2. Atypical chest pain. 3. Mild mitral insufficiency. RECOMMENDATIONS: The patient can be discharged home from the cardiac point of view on Advair, Plavix, and Spiriva to be scheduled for treadmill test as an outpatient. Kenji Black MD
--- NOTE | 2017-08-10 18:07 | CP.PCM.PN ---
Subjective - Date & Time of Evaluation Date of Evaluation: 08/10/17 Time of Evaluation: 07:40 - Subjective Subjective: clinically same Objective - Vital Signs/Intake and Output Vital Signs (last 24 hours): Temp Pulse Resp BP Pulse Ox 97.3 F L 73 20 132/74 96 08/10/17 15:00 08/10/17 15:00 08/10/17 15:00 08/10/17 15:00 08/10/17 15:00 Intake and Output: 08/10/17 08/10/17 06:59 18:59 Intake Total 300 Balance 300 - Medications Medications: Current Medications Clopidogrel Bisulfate (Plavix) 75 mg PO DAILY [facility] Last Admin: 08/10/17 09:21 Dose: 75 mg Enoxaparin Sodium (Lovenox) 40 mg SC DAILY [facility] Last Admin: 08/10/17 09:21 Dose: 40 mg Methylprednisolone (Solu-Medrol) 40 mg IV DAILY [facility] Last Admin: 08/10/17 09:31 Dose: 40 mg Fluticasone/Salmeterol (Advair Diskus 250/50) 1 puff INH RQ12 [facility] Last Admin: 08/10/17 08:33 Dose: 1 puff Tiotropium [place] (Spiriva) 18 mcg INH RQ24 [facility] Last Admin: 08/10/17 08:33 Dose: 18 mcg - Labs Labs: 08/10/17 06:16 08/10/17 06:16 - Constitutional Appears: Well - Head Exam Head Exam: ATRAUMATIC, NORMAL INSPECTION, NORMOCEPHALIC - Eye Exam Eye Exam: EOMI, Normal appearance, PERRL Pupil Exam: NORMAL ACCOMODATION, PERRL - ENT Exam ENT Exam: Mucous Membranes Moist, Normal Exam - Neck Exam Neck Exam: Full ROM, Normal Inspection. absent: Lymphadenopathy - Respiratory Exam Respiratory Exam: Decreased Breath Sounds - Cardiovascular Exam Cardiovascular Exam: REGULAR RHYTHM, +S1, +S2 - GI/Abdominal Exam GI & Abdominal Exam: Soft, Diminished Bowel Sounds - Rectal Exam Rectal Exam: Deferred
--- NOTE | 2017-08-10 18:21 | CP.PCM.PN ---
Subjective - Date & Time of Evaluation Date of Evaluation: 08/10/17 Time of Evaluation: 15:30 - Subjective Subjective: The patient seen and examined Breathing and cough much improved Afebrile continue steroids,, nebulizer treatment Need home oxygen Pulmonary function test Objective - Vital Signs/Intake and Output Vital Signs (last 24 hours): Temp Pulse Resp BP Pulse Ox 97.3 F L 73 20 132/74 96 08/10/17 15:00 08/10/17 15:00 08/10/17 15:00 08/10/17 15:00 08/10/17 15:00 Intake and Output: 08/10/17 08/10/17 06:59 18:59 Intake Total 300 Balance 300 - Medications Medications: Current Medications Clopidogrel Bisulfate (Plavix) 75 mg PO DAILY [facility] Last Admin: 08/10/17 09:21 Dose: 75 mg Enoxaparin Sodium (Lovenox) 40 mg SC DAILY [facility] Last Admin: 08/10/17 09:21 Dose: 40 mg Methylprednisolone (Solu-Medrol) 40 mg IV DAILY [facility] Last Admin: 08/10/17 09:31 Dose: 40 mg Fluticasone/Salmeterol (Advair Diskus 250/50) 1 puff INH RQ12 [facility] Last Admin: 08/10/17 08:33 Dose: 1 puff Tiotropium [place] (Spiriva) 18 mcg INH RQ24 [facility] Last Admin: 08/10/17 08:33 Dose: 18 mcg - Labs Labs: 08/10/17 06:16 08/10/17 06:16
[2017-08-11] MEDS: Fluticasone-Salmeterol 250-50mcg Diskus INH SCH ×2 (09:43→20:18)
[2017-08-11] MEDS: Tiotropium 18 mcg Cap For Inhalation INH SCH (09:44)
[2017-08-11] MEDS: MethylPREDNISolone 40 mg Vial IV SCH (10:10)
[2017-08-11] MEDS: Enoxaparin 40 mg Syringe SC SCH (10:10)
--- NOTE | 2017-08-11 15:14 | CP.PCM.PN ---
Subjective - Date & Time of Evaluation Date of Evaluation: 08/11/17 Time of Evaluation: 08:00 - Subjective Subjective: clinically same Objective - Vital Signs/Intake and Output Vital Signs (last 24 hours): Temp Pulse Resp BP Pulse Ox 97.4 F L 58 L 20 120/79 100 08/11/17 07:35 08/11/17 07:35 08/11/17 07:35 08/11/17 07:35 08/11/17 07:35 Intake and Output: 08/11/17 08/11/17 06:59 18:59 Intake Total 870 Balance 870 - Medications Medications: Current Medications Clopidogrel Bisulfate (Plavix) 75 mg PO DAILY [facility] Last Admin: 08/11/17 10:09 Dose: 75 mg Enoxaparin Sodium (Lovenox) 40 mg SC DAILY [facility] Last Admin: 08/11/17 10:10 Dose: Not Given Methylprednisolone (Solu-Medrol) 40 mg IV DAILY [facility] Last Admin: 08/11/17 10:10 Dose: 40 mg Fluticasone/Salmeterol (Advair Diskus 250/50) 1 puff INH RQ12 [facility] Last Admin: 08/11/17 09:43 Dose: 1 puff Tiotropium [place] (Spiriva) 18 mcg INH RQ24 [facility] Last Admin: 08/11/17 09:44 Dose: 18 mcg - Labs Labs: 08/10/17 06:16 08/10/17 06:16 - Constitutional Appears: Well - Head Exam Head Exam: ATRAUMATIC, NORMAL INSPECTION, NORMOCEPHALIC - Eye Exam Eye Exam: EOMI, Normal appearance, PERRL Pupil Exam: NORMAL ACCOMODATION, PERRL - ENT Exam ENT Exam: Mucous Membranes Moist, Normal Exam - Neck Exam Neck Exam: Full ROM, Normal Inspection. absent: Lymphadenopathy - Respiratory Exam Respiratory Exam: Decreased Breath Sounds - Cardiovascular Exam Cardiovascular Exam: REGULAR RHYTHM, +S1, +S2 - GI/Abdominal Exam GI & Abdominal Exam: Soft, Diminished Bowel Sounds - Rectal Exam Rectal Exam: Deferred
--- NOTE | 2017-08-11 20:12 | PN ---
DATE: SUBJECTIVE: The patient is comfortable, off nasal O2. PHYSICAL EXAMINATION: VITAL SIGNS: Blood pressure 120/79, heart rate 68, temperature 97.4, respirations 20. HEENT: Normocephalic. CHEST: Minimal rhonchi. HEART: S1 and S2, regular. EXTREMITIES: No edema. ASSESSMENT: 1. Exacerbation of chronic obstructive lung disease. 2. History of chest pain in the past. 3. Mild mitral insufficiency. RECOMMENDATIONS: Continue current Advair, subcutaneous Lovenox, Plavix, Solu-Medrol, and Spiriva. Stress test can be done as an outpatient after the patient's resolution of his exacerbation of chronic obstructive lung disease. Kenji Black MD
[2017-08-12] MEDS: MethylPREDNISolone 40 mg Vial IV SCH (09:07)
[2017-08-12] MEDS: Enoxaparin 40 mg Syringe SC SCH (09:08)
[2017-08-12] MEDS: Fluticasone-Salmeterol 250-50mcg Diskus INH SCH ×2 (09:15→22:02)
[2017-08-12] MEDS: Tiotropium 18 mcg Cap For Inhalation INH SCH (09:16)
[2017-08-12 12:19] LABS: BASO % 0.1 % (0.0-2.0); EOS % 0.2 % (0.0-4.0); HEMOGLOBIN 14.6 g/dL (12.0-18.0); MEAN CELL VOLUME 90.7 fL (80.0-94.0); MEAN CORPUSCULAR HEMOGLOBIN 30.9 pg (27.0-31.0); MEAN CORPUSCULAR HGB CONC 34.1 g/dL (33.0-37.0); MEAN PLATELET VOLUME 9.2 fL (7.2-11.7); MONO # 1.1 K/uL (0.0-0.8); MONO % 5.5 % (0.0-10.0); NEUT # 17.8 K/uL (1.8-7.0); NEUT % 89.2 % (50.0-75.0); PLATELET COUNT 210 K/uL (130-400); RBC 4.73 Mil/uL (4.40-5.90); RED CELL DISTRIBUTION WIDTH 14.1 % (11.5-14.5); WHITE BLOOD COUNT 19.9 K/uL (4.8-10.8)
[2017-08-12 12:44] LABS: ALB/GLOB RATIO 1.4 (1.0-2.1); ALBUMIN 3.9 g/dL (3.5-5.0); ALT/SGPT 41 U/L (21-72); AST/SGOT 21 U/L (17-59); BLOOD UREA NITROGEN 28 mg/dL (9-20); CALCIUM 8.3 mg/dl (8.6-10.4); GFR AFRICAN-AMERICAN > 60; GFR NON-AFRICAN AMERICAN > 60
[2017-08-12 13:43] LABS: BANDS 1 % (0-2); LYMPHOCYTE 1 % (20-40); MONOCYTE 6 % (0-10); NEUTROPHIL 92 % (50-75); PLATELET ESTIMATE NORMAL (NORMAL); TOTAL CELLS COUNTED 100
--- NOTE | 2017-08-12 16:02 | CP.PCM.PN ---
Subjective - Date & Time of Evaluation Date of Evaluation: 08/12/17 Time of Evaluation: 09:20 - Subjective Subjective: Patient seen and examined at bedside. Cough and breathing again improved. Patient feels ready for discharge and is clear from a pulmonary standpoint. Will follow-up with patient outpatient in 1 week. Assessment and Plan: 1. COPD Exacerbation - Saturating 95- 100% on vapotherm - CXR 08/04: hyperinflation, biapical pleural thickening with upper lobe granulomatous changes, mild venous congestion and bilateral hilar prominence - CT Chest 08/07: bronchial wall thickening of the mid and lower lung harden consistent with bronchitis, mild centrilobular emphysema - ABG 08/05: 7.44/ 36/ 55/ 25.2 - nebulizer treatments - spiriva 18mcg INH HS - advair INH RQ12 - solu-medrol switch to PO prednisone - Home O2 unnecessary at this time, saturated at 94% on 6 minute walk test last Saturday - PFT outpatient 2. Leukocytosis, resolved - afebrile - CBC 08/10: WBC 10.7 Objective - Vital Signs/Intake and Output Vital Signs (last 24 hours): Temp Pulse Resp BP Pulse Ox 97.7 F 60 20 136/76 95 08/12/17 08:21 08/12/17 08:21 08/12/17 08:21 08/12/17 08:21 08/12/17 08:21 Intake and Output: 08/12/17 08/12/17 06:59 18:59 Intake Total 600 400 Balance 600 400 - Medications Medications: Current Medications Clopidogrel Bisulfate (Plavix) 75 mg PO DAILY [facility] Last Admin: 08/12/17 09:07 Dose: 75 mg Prednisone (Prednisone Tab) 40 mg PO DAILY [facility] Fluticasone/Salmeterol (Advair Diskus 250/50) 1 puff INH RQ12 [facility] Last Admin: 08/12/17 09:15 Dose: 1 puff Tiotropium [place] (Spiriva) 18 mcg INH RQ24 [facility] Last Admin: 08/12/17 09:16 Dose: 18 mcg - Labs Labs: 08/12/17 11:41 08/12/17 11:41
--- NOTE | 2017-08-12 16:18 | CP.PCM.PN ---
Subjective - Date & Time of Evaluation Date of Evaluation: 08/12/17 Time of Evaluation: 08:00 - Subjective Subjective: clinically same Objective - Vital Signs/Intake and Output Vital Signs (last 24 hours): Temp Pulse Resp BP Pulse Ox 97.2 F L 66 20 120/78 95 08/12/17 15:00 08/12/17 15:00 08/12/17 15:00 08/12/17 15:00 08/12/17 15:00 Intake and Output: 08/12/17 08/12/17 06:59 18:59 Intake Total 600 400 Balance 600 400 - Medications Medications: Current Medications Clopidogrel Bisulfate (Plavix) 75 mg PO DAILY [facility] Last Admin: 08/12/17 09:07 Dose: 75 mg Prednisone (Prednisone Tab) 40 mg PO DAILY [facility] Fluticasone/Salmeterol (Advair Diskus 250/50) 1 puff INH RQ12 [facility] Last Admin: 08/12/17 09:15 Dose: 1 puff Tiotropium [place] (Spiriva) 18 mcg INH RQ24 [facility] Last Admin: 08/12/17 09:16 Dose: 18 mcg - Labs Labs: 08/12/17 11:41 08/12/17 11:41 - Constitutional Appears: Well
--- NOTE | 2017-08-12 16:36 | CP.PCM.PN ---
Subjective - Date & Time of Evaluation Date of Evaluation: 08/12/17 Time of Evaluation: 16:27 - Subjective Subjective: PGY2 progress note for Dr. Ragland Pt seen and examined at bedside. No acute events overnight. pt is seen walking around the room without oxygen without difficulty. Patient denies having any SOB, cough, abd pain, N/V/D/C, F/C. Objective - Vital Signs/Intake and Output Vital Signs (last 24 hours): Temp Pulse Resp BP Pulse Ox 97.2 F L 66 20 120/78 95 08/12/17 15:00 08/12/17 15:00 08/12/17 15:00 08/12/17 15:00 08/12/17 15:00 Intake and Output: 08/12/17 08/12/17 06:59 18:59 Intake Total 600 400 Balance 600 400 - Medications Medications: Current Medications Clopidogrel Bisulfate (Plavix) 75 mg PO DAILY [facility] Last Admin: 08/12/17 09:07 Dose: 75 mg Prednisone (Prednisone Tab) 40 mg PO DAILY [facility] Fluticasone/Salmeterol (Advair Diskus 250/50) 1 puff INH RQ12 [facility] Last Admin: 08/12/17 09:15 Dose: 1 puff Tiotropium [place] (Spiriva) 18 mcg INH RQ24 [facility] Last Admin: 08/12/17 09:16 Dose: 18 mcg - Labs Labs: 08/12/17 11:41 08/12/17 11:41 - Constitutional Appears: Non-toxic, No Acute Distress - Head Exam Head Exam: ATRAUMATIC - ENT Exam ENT Exam: Mucous Membranes Moist - Respiratory Exam Respiratory Exam: Clear to Ausculation Bilateral. absent: Accessory Muscle Use , Rales, Rhonchi, Wheezes, Respiratory Distress - Cardiovascular Exam Cardiovascular Exam: REGULAR RHYTHM, +S1, +S2. absent: Gallop, Rubs, Murmur - GI/Abdominal Exam GI & Abdominal Exam: Soft, Normal Bowel Sounds. absent: Distended, Firm, Guarding, Rigid, Tenderness, Organomegaly - Extremities Exam Extremities Exam: absent: Pedal Edema, Tenderness - Neurological Exam Neurological Exam: Alert, Awake, Oriented x3 - Psychiatric Exam Psychiatric exam: Normal Affect, Normal Mood - Skin Skin Exam: Dry, Intact, Normal Color, Warm Assessment and Plan - Assessment and Plan (Free Text) Assessment: COPD exacerbation Pt is 95% oxygen saturation on exertion with any NC use Dr. Partida, pulm consulted, help appreciated Chest CT - emphysema, bronchitis Start Advair RQ12 IN[facility] [place]ir[place] 18mcg INH HS Duonebs [place] IV steroids D/Sin. Prednisone 40 mg po starting tomorrow. Will taper daily. Incidental bone lesion finding on CT f/u serum immunofixation, kappa/lambda lights chains, protein electrophoresis, PSA please see full report for details: 9 mm area of sclerosis noted in the lateral aspect of the right seventh rib. could represent benign bone island. other processes not excluded Abnormal EKG Patient was seen by cardiology on last visit and was supposed to follow up outpatient for stress test - pt states he was unable Trop negative x 3 Dr. Black consulted, cardiology, help appreciated -Patient can follow up outpatient for stress test Plavix qd Leukocytosis - Likely due to steroids. will continue to monitor Prophylaxis GI - not indicated Lovenox 40mg SC daily All management per Dr. Eulalia Ragland
--- NOTE | 2017-08-12 17:36 | CP.PCM.PN ---
Subjective - Date & Time of Evaluation Date of Evaluation: 08/12/17 Time of Evaluation: 08:20 - Subjective Subjective: clinically same Objective - Vital Signs/Intake and Output Vital Signs (last 24 hours): Temp Pulse Resp BP Pulse Ox 97.2 F L 66 20 120/78 95 08/12/17 15:00 08/12/17 15:00 08/12/17 15:00 08/12/17 15:00 08/12/17 15:00 Intake and Output: 08/12/17 08/12/17 06:59 18:59 Intake Total 600 400 Balance 600 400 - Medications Medications: Current Medications Clopidogrel Bisulfate (Plavix) 75 mg PO DAILY [facility] Last Admin: 08/12/17 09:07 Dose: 75 mg Prednisone (Prednisone Tab) 40 mg PO DAILY [facility] Fluticasone/Salmeterol (Advair Diskus 250/50) 1 puff INH RQ12 [facility] Last Admin: 08/12/17 09:15 Dose: 1 puff Tiotropium [place] (Spiriva) 18 mcg INH RQ24 [facility] Last Admin: 08/12/17 09:16 Dose: 18 mcg - Labs Labs: 08/12/17 11:41 08/12/17 11:41 - Constitutional Appears: Well - Head Exam Head Exam: ATRAUMATIC, NORMAL INSPECTION, NORMOCEPHALIC - Eye Exam Eye Exam: EOMI, Normal appearance, PERRL Pupil Exam: NORMAL ACCOMODATION, PERRL - ENT Exam ENT Exam: Mucous Membranes Moist, Normal Exam - Neck Exam Neck Exam: Full ROM, Normal Inspection. absent: Lymphadenopathy - Respiratory Exam Respiratory Exam: Decreased Breath Sounds - Cardiovascular Exam Cardiovascular Exam: REGULAR RHYTHM, +S1, +S2 - GI/Abdominal Exam GI & Abdominal Exam: Soft, Diminished Bowel Sounds - Rectal Exam Rectal Exam: Deferred
--- NOTE | 2017-08-12 20:45 | PN ---
DATE: 08/12/2017 SUBJECTIVE: The patient denies any chest pain. PHYSICAL EXAMINATION: VITAL SIGNS: Blood pressure 136/76, heart rate 60, temperature 97.7, respirations 20. HEENT: Normocephalic. CHEST: Minimal rhonchi. HEART: S1 and S2 regular. EXTREMITIES: No edema. LABORATORY DATA: Today's white count of 19.9. Hemoglobin, hematocrit, and platelet count are within normal limits. Today, SMA-7 is within normal limits except for BUN of 28 and glucose 117. ASSESSMENT: 1. Exacerbation of chronic obstructive lung disease. 2. Atypical chest pain. 3. upper respiratory tract infection. RECOMMENDATIONS: Continue current Advair, Plavix, prednisone, and Spiriva. Kenji Black MD [id number]
[2017-08-13 00:07] LABS: ALBUMIN (PEP) 3.4 g/dL (3.8-4.8); ALPHA-1-GLOBULIN (PEP) 0.3 g/dL (0.2-0.3)
[2017-08-13 07:37] VITALS: BP 130/75; PULSE 58; TEMP 97.8; O2SAT 97
[2017-08-13] MEDS: Tiotropium 18 mcg Cap For Inhalation INH SCH (07:57)
[2017-08-13] MEDS: Fluticasone-Salmeterol 250-50mcg Diskus INH SCH (07:57)
[2017-08-13 08:22] LABS: BASO % 0.1 % (0.0-2.0); EOS % 0.2 % (0.0-4.0); HEMOGLOBIN 14.4 g/dL (12.0-18.0); LYMPH # 1.9 K/uL (1.0-4.3); LYMPH % 11.3 % (20.0-40.0); MEAN CELL VOLUME 89.4 fL (80.0-94.0); MEAN CORPUSCULAR HEMOGLOBIN 30.8 pg (27.0-31.0); MEAN CORPUSCULAR HGB CONC 34.5 g/dL (33.0-37.0); MONO # 1.3 K/uL (0.0-0.8); MONO % 7.9 % (0.0-10.0); NEUT # 13.6 K/uL (1.8-7.0); NEUT % 80.5 % (50.0-75.0); RBC 4.66 Mil/uL (4.40-5.90); RED CELL DISTRIBUTION WIDTH 13.8 % (11.5-14.5); WHITE BLOOD COUNT 16.9 K/uL (4.8-10.8)
[2017-08-13 08:41] LABS: ALB/GLOB RATIO 1.3 (1.0-2.1); ALBUMIN 3.7 g/dL (3.5-5.0); ALT/SGPT 44 U/L (21-72); AST/SGOT 28 U/L (17-59); BLOOD UREA NITROGEN 32 mg/dL (9-20); CALCIUM 8.1 mg/dl (8.6-10.4); GFR AFRICAN-AMERICAN > 60; GFR NON-AFRICAN AMERICAN > 60
--- NOTE | 2017-08-13 14:47 | CP.PCM.PN ---
Subjective - Date & Time of Evaluation Date of Evaluation: 08/13/17 Time of Evaluation: 14:47 - Subjective Subjective: PATIENT IS ADMITTED FOR ASTHMA DENIES CHEST PAIN OR SOB NO SIGN OF DISTRESS NOTED Objective - Vital Signs/Intake and Output Vital Signs (last 24 hours): Temp Pulse Resp BP Pulse Ox 97.8 F 58 L 20 130/75 97 08/13/17 07:05 08/13/17 07:05 08/13/17 07:05 08/13/17 07:05 08/13/17 07:05 - Medications Medications: Current Medications Clopidogrel Bisulfate (Plavix) 75 mg PO DAILY [facility] Last Admin: 08/13/17 10:46 Dose: 75 mg Prednisone (Prednisone Tab) 40 mg PO DAILY [facility] Last Admin: 08/13/17 10:46 Dose: 40 mg Fluticasone/Salmeterol (Advair Diskus 250/50) 1 puff INH RQ12 [facility] Last Admin: 08/13/17 07:57 Dose: 1 puff Tiotropium [place] (Spiriva) 18 mcg INH RQ24 [facility] Last Admin: 08/13/17 07:57 Dose: 18 mcg - Labs Labs: 08/13/17 08:13 08/13/17 08:13 Assessment and Plan - Assessment and Plan (Free Text) Assessment: PATIENT SEEN AND EXAMINED AT THE BEDSIDE LUNG SOUND CLEAR Saturating 95- 100% - Home O2 unnecessary at this time, saturated at 94% on 6 minute walk test last Saturday Leukocytosis, resolved - afebrile - CBC 08/13: WBC 16.9 Patient stable for discharge home per Dr. Ragland Patient to follow up with PMD upon discharge. Patient to follow up with helmet hat puncher upon discharge. Patient given referral for Dr. Black Patient is to follow up with cassandra developer upon discharge. Patient given referral for Dr. Partida. Patient is discharged on the following medications: Albuterol 2.5mg/3mL nebulizer solution #30, Ventolin inhaler 1 puff Q4 prn #1, Advair Diskus 250/50 1 puff q12 #1, Spiriva 1 puff q24hr #1, Singulair 10 mg po qd #30, Plavix 75 mg po qd #30, Medrol dose red #1. Please return to ED if symptoms worsen.
--- NOTE | 2017-08-13 15:13 | CP.PCM.PN ---
Subjective - Date & Time of Evaluation Date of Evaluation: 08/13/17 Time of Evaluation: 10:20 - Subjective Subjective: Patient seen and examined at bedside. Cough and breathing again improved. Patient feels ready for discharge and is clear from a pulmonary standpoint. Will follow-up with patient outpatient in 1 week after discharge. Assessment and Plan: 1. COPD Exacerbation - Saturating 95- 100% - Home O2 unnecessary at this time, saturated at 94% on 6 minute walk test last Saturday - PFT outpatient 2. Leukocytosis, resolved - afebrile - CBC 08/13: WBC 16.9 Objective - Vital Signs/Intake and Output Vital Signs (last 24 hours): Temp Pulse Resp BP Pulse Ox 97.8 F 58 L 20 130/75 97 08/13/17 07:05 08/13/17 07:05 08/13/17 07:05 08/13/17 07:05 08/13/17 07:05 - Medications Medications: Current Medications Clopidogrel Bisulfate (Plavix) 75 mg PO DAILY [facility] Last Admin: 08/13/17 10:46 Dose: 75 mg Prednisone (Prednisone Tab) 40 mg PO DAILY [facility] Last Admin: 08/13/17 10:46 Dose: 40 mg Fluticasone/Salmeterol (Advair Diskus 250/50) 1 puff INH RQ12 [facility] Last Admin: 08/13/17 07:57 Dose: 1 puff Tiotropium [place] (Spiriva) 18 mcg INH RQ24 [facility] Last Admin: 08/13/17 07:57 Dose: 18 mcg - Labs Labs: 08/13/17 08:13 08/13/17 08:13
[2017-08-13] MEDS ORDERED: Pneumococcal 23-Valent Vaccine IM ONE (15:15)
--- NOTE | 2017-08-13 15:22 | CP.PCM.PN ---
Subjective - Date & Time of Evaluation Date of Evaluation: 08/13/17 Time of Evaluation: 07:40 - Subjective Subjective: clinically same Objective - Vital Signs/Intake and Output Vital Signs (last 24 hours): Temp Pulse Resp BP Pulse Ox 97.8 F 58 L 20 130/75 97 08/13/17 07:05 08/13/17 07:05 08/13/17 07:05 08/13/17 07:05 08/13/17 07:05 - Medications Medications: Current Medications Clopidogrel Bisulfate (Plavix) 75 mg PO DAILY [facility] Last Admin: 08/13/17 10:46 Dose: 75 mg Prednisone (Prednisone Tab) 40 mg PO DAILY [facility] Last Admin: 08/13/17 10:46 Dose: 40 mg Fluticasone/Salmeterol (Advair Diskus 250/50) 1 puff INH RQ12 [facility] Last Admin: 08/13/17 07:57 Dose: 1 puff Tiotropium [place] (Spiriva) 18 mcg INH RQ24 [facility] Last Admin: 08/13/17 07:57 Dose: 18 mcg - Labs Labs: 08/13/17 08:13 08/13/17 08:13 - Constitutional Appears: Well - Head Exam Head Exam: ATRAUMATIC, NORMAL INSPECTION, NORMOCEPHALIC - Eye Exam Eye Exam: EOMI, Normal appearance, PERRL Pupil Exam: NORMAL ACCOMODATION, PERRL - ENT Exam ENT Exam: Mucous Membranes Moist, Normal Exam - Neck Exam Neck Exam: Full ROM, Normal Inspection. absent: Lymphadenopathy - Respiratory Exam Respiratory Exam: Decreased Breath Sounds - Cardiovascular Exam Cardiovascular Exam: REGULAR RHYTHM, +S1, +S2 - GI/Abdominal Exam GI & Abdominal Exam: Soft, Diminished Bowel Sounds - Rectal Exam Rectal Exam: Deferred Assessment and Plan (1) Asthma exacerbation Status: Acute (2) COPD exacerbation Status: Acute (3) Chest wall pain Status: Acute (4) Chronic obstructive lung disease Status: Acute (5) Dyspnea Status: Acute (6) History of smoking Status: Acute (7) Laryngitis Status: Acute (8) Prophylactic measure Status: Acute (9) Tobacco use disorder Status: Acute
--- NOTE | 2017-08-13 17:53 | PN ---
DATE: 08/13/2017 SUBJECTIVE: The patient denies chest pain or shortness of breath at this time. No bleeding. PHYSICAL EXAMINATION: VITAL SIGNS: Blood pressure 130/75, heart rate 68, temperature 97.8, respirations 20. HEENT: Normocephalic. CHEST: Minimal rhonchi. HEART: S1, S2 regular. EXTREMITIES: No edema. LABORATORY DATA: Today's hemoglobin and hematocrit 14.4 and 41.7, white count 16.9, platelet count 109,000. Today's SMA-7 is within normal limits except for BUN of 32. ASSESSMENT: 1. Atypical chest pain. 2. Myocardial infarction is ruled out. 3. Exacerbation of chronic obstructive lung disease. 4. Hyperglycemia, most likely related to steroid therapy. RECOMMENDATIONS: Continue current Advair, Plavix, prednisone, and Spiriva. The patient can be discharged from the cardiac point of view. Kenji Black MD
== END 2017-08-13 15:50 | disposition home or self-care (01) | DRG 88 ==
LOC: C.ER 23:09 → C.9E 08-05 01:53 → C.9I 08-05 02:21 → C.5S 08-05 17:25
PROVIDERS: ADMIT Internal Medicine Nephrology; ATTEND Internal Medicine Nephrology
PROC: 5A09357 Assistance with Respiratory Ventilation, Less than 24 Consecutive Hours, Continuous Positive Airway Pressure (ICD-10-PCS; principal; 2017-08-05)
DX: J44.1 Chronic obstructive pulmonary disease with (acute) exacerbation (principal); J45.901 Unspecified asthma with (acute) exacerbation; J44.0 Chronic obstructive pulmonary disease with (acute) lower respiratory infection; J20.9 Acute bronchitis, unspecified; J43.2 Centrilobular emphysema; E11.65 Type 2 diabetes mellitus with hyperglycemia; E11.22 Type 2 diabetes mellitus with diabetic chronic kidney disease; N18.9 Chronic kidney disease, unspecified; D72.829 Elevated white blood cell count, unspecified; T38.0X5A Adverse effect of glucocorticoids and synthetic analogues, initial encounter; I34.0 Nonrheumatic mitral (valve) insufficiency; J06.9 Acute upper respiratory infection, unspecified; M89.9 Disorder of bone, unspecified; Z87.891 Personal history of nicotine dependence; Z79.82 Long term (current) use of aspirin; Z79.899 Other long term (current) drug therapy